=== PATIENT | female | born 1955 | race Hispanic/Latino ===

== ENCOUNTER → 2018-11-27 | Day surgery (SDC) | payer MEDICARE ==
[~2018-11-27] MED LIST: ACETAMINOPHEN/CODEINE 300MG - 30MG TAB ONE; ALLOPURINOL100 MG PO; ASPIRIN81 MG PO; ATORVASTATIN CA20 MG PO; BUPIVACAINE 0.25%/EPI 30ML SDV INJ ONE; CARVEDILOL12.5 MG PO; CEFAZOLIN SOD 1 GM VIAL ONE; CLINDAMYCIN HC150 MG PO; CLOPIDOGREL75 MG PO; FENTANYL CITRATE/PF 100MCG/2 ML INJ ONE; FUROSEMIDE40 MG PO; GABAPENTIN300 MG PO; GLIMEPIRIDE2 MG PO; HYDROGEN PEROXIDE 120 ML BTL ONE; ISOSORBIDE MONO20 MG PO; LEVOTHYROXINE100 MC1 PO; LIDOCAINE 1% W/EPINEPHRINE 20 ML VIAL ONE; LIDOCAINE HCL 1% LOCAL INJ 20 ML VIAL ONE; LIDOCAINE HCL 2% LOCAL INJ 5 ML SDV VIAL INJ ONE; MIDAZOLAM HCL 2 MG/2 ML VIAL ONE; ONDANSETRON HCL INJ 2MG/ML 2ML 2 MG/ML VIAL ONE; PROPOFOL IV EMULSION 10 MG/ML 20 ML VIAL ONE; SEVOFLURANE INHAL SOLN 250 ML PEN BTL ONE; SULFAMETHOXAZO1 EAC1 PO; TYLENOL WITH C1 EACH PO
--- OUTSIDE RECORDS SUMMARY | 2018-11-27 05:24 | XMS REPORT ---
Author Author [facility] Address Unknown Phone Unavailable Care Team Providers Care Labor Representative Name Role Phone Unavailable Unavailable Payers Payer Name Policy Type Policy Number Effective Date Expiration Date Problems This patient has no known problems. Allergies, Adverse Reactions, Alerts Allergy Name Allergy Type Status Severity Reaction(s) Onset Date Inactive Date Treating Clinician Comments No Known Allergies DA Active U 2018-05-08 00:00:00 No Known Allergies DA Active U 2016-06-20 00:00:00 Medications This patient has no known medications. Results Test Description Test Time Test Comments Text Results Atomic Results Result Comments COAGULATION TIME ACTIVATED 2018-09-07 23:04:00 COAGULATION TIME ACTIVATED (test code=ACT) 156 seconds 62.8-88.0 COAGULATION TIME [id number] 23:04:00* Test Item Value Reference Range Comments COAGULATION TIME ACTIVATED (test code=ACT) 166 seconds 62.8-88.0 COAGULATION TIME [id number] 15:39:00* Test Item Value Reference Range Comments COAGULATION TIME ACTIVATED (test code=ACT) 160 seconds 62.8-88.0 BASIC METABOLIC [id number] 07:01:00* Test Item Value Reference Range Comments SODIUM (test code=NA) 142 mmol/L 136-145 POTASSIUM (test code=K) 4.8 mmol/L 3.5-5.1 CHLORIDE (test code=CL) 107.0 mmol/L 98-107 CARBON DIOXIDE (test code=CO2) 26.0 mmol/L 21-32 ANION GAP (test code=GAP) 13.8 10-20 GLUCOSE (test code=GLU) 66 mg/dL 74-106 BLOOD UREA NITROGEN (test code=BUN) 27 mg/dL 7-18 GLOMERULAR FILTRATION RATE (test code=GFR) 33 mL/min >=60 Estimated GFR by using Modified MDRD formula.Chronic kidney disease is defined as either kidney damageor GFR <60 mL/min/1.73 m2 for >3 months. CREATININE (test code=CREAT) 1.60 mg/dL 0.55-1.02 Note change in reference range due to change in reagent. BUN/CREATININE RATIO (test code=BUN/CREA) 16.6 10-20 CALCIUM (test code=CA) 8.3 mg/dL 8.5-10.1 BASIC METABOLIC [id number] 06:52:00* Test Item Value Reference Range Comments SODIUM (test code=NA) 142 mmol/L 136-145 POTASSIUM (test code=K) 4.8 mmol/L 3.5-5.1 CHLORIDE (test code=CL) 107.0 mmol/L 98-107 CARBON DIOXIDE (test code=CO2) mmol/L 21-32 ANION GAP (test code=GAP) 10-20 GLUCOSE (test code=GLU) mg/dL 74-106 BLOOD UREA NITROGEN (test code=BUN) mg/dL 7-18 GLOMERULAR FILTRATION RATE (test code=GFR) mL/min >=60 CREATININE (test code=CREAT) mg/dL 0.55-1.02 BUN/CREATININE RATIO (test code=BUN/CREA) 10-20 CALCIUM (test code=CA) mg/dL 8.5-10.1 CBC W/AUTO [id number] 06:21:00* Test Item Value Reference Range Comments WHITE BLOOD CELL (test code=WBC) 13.2 K/mm3 4.5-12.5 RED BLOOD CELL (test code=RBC) 3.41 mill/mm3 3.7-5.2 HEMOGLOBIN (test code=HGB) 10.2 gram/dL 11.5-15.5 HEMATOCRIT (test code=HCT) 33.4 % 36.0-46.0 MEAN CELL VOLUME (test code=MCV) 97.9 fL 80-98 MEAN CELL HGB (test code=MCH) 29.9 picogram 27.0-33.0 MEAN CELL HGB CONCETRATION (test code=MCHC) 30.5 gram/dL 33.0-36.0 RED CELL DISTRIBUTION WIDTH (test code=RDW) 15.8 % 11.6-16.2 RED CELL DISTRIBUTION WIDTH SD (test code=RDW-SD) 56.4 fL 37.0-51.0 PLATELET COUNT (test code=PLT) 454 K/mm3 150-450 RESULT VERIFIED BY REPEAT ANALYSIS MEAN PLATELET VOLUME (test code=MPV) 10.8 fL 6.7-11.0 NEUTROPHIL % (test code=NT%) 67.1 % 39.0-69.0 IMMATURE GRANULOCYTE % (test code=IG%) 0.5 % 0.0-5.0 LYMPHOCYTE % (test code=LY%) 21.5 % 25.0-55.0 MONOCYTE % (test code=MO%) 6.8 % 0.0-10.0 EOSINOPHIL % (test code=EO%) 3.8 % 0.0-5.0 BASOPHIL % (test code=BA%) 0.3 % 0.0-1.0 NUCLEATED RBC % (test code=NRBC%) 0.0 % 0-0 NEUTROPHIL # (test code=NT#) 8.87 K/mm3 1.8-7.7 IMMATURE GRANULOCYTE # (test code=IG#) 0.07 x10 3/uL 0-0.03 LYMPHOCYTE # (test code=LY#) 2.84 K/mm3 1.0-5.0 MONOCYTE # (test code=MO#) 0.90 K/mm3 0-0.8 EOSINOPHIL # (test code=EO#) 0.50 K/mm3 0.0-0.5 BASOPHIL # (test code=BA#) 0.04 K/mm3 0.0-0.2 NUCLEATED RBC # (test code=NRBC#) 0.00 K/mm3 0.0-0.1 MANUAL DIFF REQUIRED (test code=MDIFF) NO [id number] 04:57:00* Test Item Value Reference Range Comments GLUBED (test code=GLUBED) 72 mg/dL 74-106 Performed by certified slice cutting machine operator helper at [facility] [id number] 23:37:00* Test Item Value Reference Range Comments GLUBED (test code=GLUBED) 153 mg/dL 74-106 Performed by certified slice cutting machine operator helper at [facility] [id number] 19:14:00* Test Item Value Reference Range Comments GLUBED (test code=GLUBED) 92 mg/dL 74-106 Performed by certified slice cutting machine operator helper at [facility] CBC W/AUTO [id number] 07:44:00* Test Item Value Reference Range Comments WHITE BLOOD CELL (test code=WBC) 13.5 K/mm3 4.5-12.5 RED BLOOD CELL (test code=RBC) 3.74 mill/mm3 3.7-5.2 HEMOGLOBIN (test code=HGB) 11.1 gram/dL 11.5-15.5 HEMATOCRIT (test code=HCT) 36.4 % 36.0-46.0 MEAN CELL VOLUME (test code=MCV) 97.3 fL 80-98 MEAN CELL HGB (test code=MCH) 29.7 picogram 27.0-33.0 MEAN CELL HGB CONCETRATION (test code=MCHC) 30.5 gram/dL 33.0-36.0 RED CELL DISTRIBUTION WIDTH (test code=RDW) 15.7 % 11.6-16.2 RED CELL DISTRIBUTION WIDTH SD (test code=RDW-SD) 56.0 fL 37.0-51.0 PLATELET COUNT (test code=PLT) 519 K/mm3 150-450 MEAN PLATELET VOLUME (test code=MPV) 10.5 fL 6.7-11.0 NEUTROPHIL % (test code=NT%) 61.3 % 39.0-69.0 IMMATURE GRANULOCYTE % (test code=IG%) 0.8 % 0.0-5.0 LYMPHOCYTE % (test code=LY%) 27.5 % 25.0-55.0 MONOCYTE % (test code=MO%) 5.3 % 0.0-10.0 EOSINOPHIL % (test code=EO%) 4.7 % 0.0-5.0 BASOPHIL % (test code=BA%) 0.4 % 0.0-1.0 NUCLEATED RBC % (test code=NRBC%) 0.0 % 0-0 NEUTROPHIL # (test code=NT#) 8.29 K/mm3 1.8-7.7 IMMATURE GRANULOCYTE # (test code=IG#) 0.11 x10 3/uL 0-0.03 LYMPHOCYTE # (test code=LY#) 3.73 K/mm3 1.0-5.0 MONOCYTE # (test code=MO#) 0.72 K/mm3 0-0.8 EOSINOPHIL # (test code=EO#) 0.63 K/mm3 0.0-0.5 BASOPHIL # (test code=BA#) 0.06 K/mm3 0.0-0.2 NUCLEATED RBC # (test code=NRBC#) 0.00 K/mm3 0.0-0.1 MANUAL DIFF REQUIRED (test code=MDIFF) NO COMPREHENSIVE METABOLIC [id number] 07:43:00* Test Item Value Reference Range Comments SODIUM (test code=NA) 142 mmol/L 136-145 POTASSIUM (test code=K) 4.2 mmol/L 3.5-5.1 CHLORIDE (test code=CL) 108.0 mmol/L 98-107 CARBON DIOXIDE (test code=CO2) 24.0 mmol/L 21-32 ANION GAP (test code=GAP) 14.2 10-20 GLUCOSE (test code=GLU) 116 mg/dL 74-106 BLOOD UREA NITROGEN (test code=BUN) 29 mg/dL 7-18 GLOMERULAR FILTRATION RATE (test code=GFR) 25 mL/min >=60 Estimated GFR by using Modified MDRD formula.Chronic kidney disease is defined as either kidney damageor GFR <60 mL/min/1.73 m2 for >3 months. CREATININE (test code=CREAT) 2.00 mg/dL 0.55-1.02 Note change in reference range due to change in reagent. BUN/CREATININE RATIO (test code=BUN/CREA) 14.8 10-20 TOTAL PROTEIN (test code=PROT) 7.1 gram/dL 6.4-8.2 ALBUMIN (test code=ALB) 3.0 g/dL 3.4-5.0 GLOBULIN (test code=GLOB) 4.1 gram/dL 2.7-4.2 ALBUMIN/GLOBULIN RATIO (test code=A/G) 0.7 0.75-1.50 CALCIUM (test code=CA) 9.0 mg/dL 8.5-10.1 BILIRUBIN TOTAL (test code=BILT) 0.30 mg/dL 0.0-1.0 SGOT/AST (test code=AST) 10 IUnit/L 15-37 SGPT/ALT (test code=ALT) 13 IUnit/L 12-78 ALKALINE PHOSPHATASE TOTAL (test code=ALKP) 168 IUnit/L 45-117 Note change in reference range due to change in reagent. COMPREHENSIVE METABOLIC [id number] 07:39:00* Test Item Value Reference Range Comments SODIUM (test code=NA) 142 mmol/L 136-145 POTASSIUM (test code=K) 4.2 mmol/L 3.5-5.1 CHLORIDE (test code=CL) 108.0 mmol/L 98-107 CARBON DIOXIDE (test code=CO2) mmol/L 21-32 ANION GAP (test code=GAP) 10-20 GLUCOSE (test code=GLU) mg/dL 74-106 BLOOD UREA NITROGEN (test code=BUN) mg/dL 7-18 GLOMERULAR FILTRATION RATE (test code=GFR) mL/min >=60 CREATININE (test code=CREAT) mg/dL 0.55-1.02 BUN/CREATININE RATIO (test code=BUN/CREA) 10-20 TOTAL PROTEIN (test code=PROT) gram/dL 6.4-8.2 ALBUMIN (test code=ALB) g/dL 3.4-5.0 GLOBULIN (test code=GLOB) gram/dL 2.7-4.2 ALBUMIN/GLOBULIN RATIO (test code=A/G) 0.75-1.50 CALCIUM (test code=CA) mg/dL 8.5-10.1 BILIRUBIN TOTAL (test code=BILT) mg/dL 0.0-1.0 SGOT/AST (test code=AST) IUnit/L 15-37 SGPT/ALT (test code=ALT) IUnit/L 12-78 ALKALINE PHOSPHATASE TOTAL (test code=ALKP) IUnit/L 45-117 [id number] 07:00:00* Test Item Value Reference Range Comments GLUBED (test code=GLUBED) 118 mg/dL 74-106 Performed by certified slice cutting machine operator helper at [facility] COAGULATION TIME [id number] 10:06:00* Test Item Value Reference Range Comments COAGULATION TIME ACTIVATED (test code=ACT) 152 seconds 62.8-88.0 [id number] 11:56:00* Test Item Value Reference Range Comments GLUBED (test code=GLUBED) 129 mg/dL 74-106 Performed by certified slice cutting machine operator helper at [facility] [id number] 06:08:00* Test Item Value Reference Range Comments GLUBED (test code=GLUBED) 162 mg/dL 74-106 Performed by certified slice cutting machine operator helper at [facility] BASIC METABOLIC [id number] 04:44:00* Test Item Value Reference Range Comments SODIUM (test code=NA) 142 mmol/L 136-145 POTASSIUM (test code=K) 3.9 mmol/L 3.5-5.1 CHLORIDE (test code=CL) 109.0 mmol/L 98-107 CARBON DIOXIDE (test code=CO2) 23.0 mmol/L 21-32 ANION GAP (test code=GAP) 13.9 10-20 GLUCOSE (test code=GLU) 130 mg/dL 74-106 BLOOD UREA NITROGEN (test code=BUN) 27 mg/dL 7-18 GLOMERULAR FILTRATION RATE (test code=GFR) 28 mL/min >=60 Estimated GFR by using Modified MDRD formula.Chronic kidney disease is defined as either kidney damageor GFR <60 mL/min/1.73 m2 for >3 months. CREATININE (test code=CREAT) 1.80 mg/dL 0.55-1.02 Note change in reference range due to change in reagent. BUN/CREATININE RATIO (test code=BUN/CREA) 14.8 10-20 CALCIUM (test code=CA) 8.4 mg/dL 8.5-10.1 CBC W/AUTO [id number] 04:28:00* Test Item Value Reference Range Comments WHITE BLOOD CELL (test code=WBC) 14.0 K/mm3 4.5-12.5 RED BLOOD CELL (test code=RBC) 3.41 mill/mm3 3.7-5.2 HEMOGLOBIN (test code=HGB) 10.4 gram/dL 11.5-15.5 HEMATOCRIT (test code=HCT) 33.7 % 36.0-46.0 MEAN CELL VOLUME (test code=MCV) 98.8 fL 80-98 MEAN CELL HGB (test code=MCH) 30.5 picogram 27.0-33.0 MEAN CELL HGB CONCETRATION (test code=MCHC) 30.9 gram/dL 33.0-36.0 RED CELL DISTRIBUTION WIDTH (test code=RDW) 15.7 % 11.6-16.2 RED CELL DISTRIBUTION WIDTH SD (test code=RDW-SD) 56.7 fL 37.0-51.0 PLATELET COUNT (test code=PLT) 360 K/mm3 150-450 MEAN PLATELET VOLUME (test code=MPV) 10.9 fL 6.7-11.0 NEUTROPHIL % (test code=NT%) 62.6 % 39.0-69.0 IMMATURE GRANULOCYTE % (test code=IG%) 0.4 % 0.0-5.0 LYMPHOCYTE % (test code=LY%) 25.8 % 25.0-55.0 MONOCYTE % (test code=MO%) 6.5 % 0.0-10.0 EOSINOPHIL % (test code=EO%) 4.4 % 0.0-5.0 BASOPHIL % (test code=BA%) 0.3 % 0.0-1.0 NUCLEATED RBC % (test code=NRBC%) 0.0 % 0-0 NEUTROPHIL # (test code=NT#) 8.77 K/mm3 1.8-7.7 IMMATURE GRANULOCYTE # (test code=IG#) 0.06 x10 3/uL 0-0.03 LYMPHOCYTE # (test code=LY#) 3.61 K/mm3 1.0-5.0 MONOCYTE # (test code=MO#) 0.91 K/mm3 0-0.8 EOSINOPHIL # (test code=EO#) 0.61 K/mm3 0.0-0.5 BASOPHIL # (test code=BA#) 0.04 K/mm3 0.0-0.2 NUCLEATED RBC # (test code=NRBC#) 0.00 K/mm3 0.0-0.1 [id number] 04:22:00* Test Item Value Reference Range Comments GLUBED (test code=GLUBED) 102 mg/dL 74-106 Performed by certified slice cutting machine operator helper at [facility] [id number] 16:54:00* Test Item Value Reference Range Comments GLUBED (test code=GLUBED) 95 mg/dL 74-106 Performed by certified slice cutting machine operator helper at [facility] [id number] 11:21:00* Test Item Value Reference Range Comments GLUBED (test code=GLUBED) 126 mg/dL 74-106 Performed by certified slice cutting machine operator helper at [facility] [id number] 07:45:00* Test Item Value Reference Range Comments GLUBED (test code=GLUBED) 110 mg/dL 74-106 Performed by certified slice cutting machine operator helper at [facility] COMPREHENSIVE METABOLIC [id number] 10:57:00* Test Item Value Reference Range Comments SODIUM (test code=NA) 142 mmol/L 136-145 POTASSIUM (test code=K) 3.6 mmol/L 3.5-5.1 CHLORIDE (test code=CL) 107.0 mmol/L 98-107 CARBON DIOXIDE (test code=CO2) 27.0 mmol/L 21-32 ANION GAP (test code=GAP) 11.6 10-20 GLUCOSE (test code=GLU) 160 mg/dL 74-106 BLOOD UREA NITROGEN (test code=BUN) 31 mg/dL 7-18 GLOMERULAR FILTRATION RATE (test code=GFR) 28 mL/min >=60 Estimated GFR by using Modified MDRD formula.Chronic kidney disease is defined as either kidney damageor GFR <60 mL/min/1.73 m2 for >3 months. CREATININE (test code=CREAT) 1.80 mg/dL 0.55-1.02 Note change in reference range due to change in reagent. BUN/CREATININE RATIO (test code=BUN/CREA) 17.4 10-20 TOTAL PROTEIN (test code=PROT) 8.0 gram/dL 6.4-8.2 ALBUMIN (test code=ALB) 3.3 g/dL 3.4-5.0 GLOBULIN (test code=GLOB) 4.7 gram/dL 2.7-4.2 ALBUMIN/GLOBULIN RATIO (test code=A/G) 0.7 0.75-1.50 CALCIUM (test code=CA) 9.1 mg/dL 8.5-10.1 BILIRUBIN TOTAL (test code=BILT) 0.40 mg/dL 0.0-1.0 SGOT/AST (test code=AST) 15 IUnit/L 15-37 SGPT/ALT (test code=ALT) 24 IUnit/L 12-78 ALKALINE PHOSPHATASE TOTAL (test code=ALKP) 181 IUnit/L 45-117 Note change in reference range due to change in reagent. LIPID PROFILE (CORONARY RISK)2018-08-21 10:57:00* Test Item Value Reference Range Comments TRIGLYCERIDES (test code=TRIG) 195 mg/dL 20-150 CHOLESTEROL (test code=CHOL) 170 mg/dL 0-200 CHOLESTEROL/HDL RATIO (test code=CHOLHDL) 4.0 RATIO 0-4.9 RISK ASSOCIATED WITH CHOL/HDL RATIOS: Risk Male Female1/2 AVERAGE 3.43 3.27AVERAGE 4.97 4.442X AVERAGE 9.55 7.053X AVERAGE 23.39 11.04 REFERENCE VALUE IS RELATED TO RISK LEVELS ASRECOMMENDED BY THE [facility]. HEART, LUNG, AND BLOOD INST. HDL CHOLESTEROL (test code=HDL) 38 mg/dL 40-60 LIPOPROTEIN LDL (test code=LDL) 121 mg/dL 100-129 RN PERSONNEL, CONTACT PHYSICIAN IMMEDIATELY IF THIS IS A STROKE, AMI OR CAROTID STENOSIS PATIENT WHEN THE LDL >100 (1ST OCCURENCE, THIS ADMISSION) Reference Interval: mg/dL mmol/L Optimal <100 <2.6Near/above optimal 100-129 2.6- 3.3Borderline High 130-159 3.4-4.1High 160-189 4.1-4.9Very High >=190 >=4.9=========This LDL result is a direct measurement.========= THYROID STIMULATING [id number] 10:57:00* Test Item Value Reference Range Comments THYROID STIMULATING HORMONE (test code=TSH) 2.210 uIU/mL 0.36-3.74 TSH REFERENCE RANGES: EUTHYROID: 0.35 - 4.3 mIU/mL HYPO : > 5.5 mIU/mL HYPER : < 0.35 mIU/mL CBC W/AUTO [id number] 10:44:00* Test Item Value Reference Range Comments WHITE BLOOD CELL (test code=WBC) 14.2 K/mm3 4.5-12.5 RED BLOOD CELL (test code=RBC) 4.02 mill/mm3 3.7-5.2 HEMOGLOBIN (test code=HGB) 12.1 gram/dL 11.5-15.5 HEMATOCRIT (test code=HCT) 38.9 % 36.0-46.0 MEAN CELL VOLUME (test code=MCV) 96.8 fL 80-98 MEAN CELL HGB (test code=MCH) 30.1 picogram 27.0-33.0 MEAN CELL HGB CONCETRATION (test code=MCHC) 31.1 gram/dL 33.0-36.0 RED CELL DISTRIBUTION WIDTH (test code=RDW) 15.8 % 11.6-16.2 RED CELL DISTRIBUTION WIDTH SD (test code=RDW-SD) 55.8 fL 37.0-51.0 PLATELET COUNT (test code=PLT) 442 K/mm3 150-450 MEAN PLATELET VOLUME (test code=MPV) 10.9 fL 6.7-11.0 NEUTROPHIL % (test code=NT%) 64.2 % 39.0-69.0 IMMATURE GRANULOCYTE % (test code=IG%) 0.5 % 0.0-5.0 LYMPHOCYTE % (test code=LY%) 24.8 % 25.0-55.0 MONOCYTE % (test code=MO%) 4.6 % 0.0-10.0 EOSINOPHIL % (test code=EO%) 5.6 % 0.0-5.0 BASOPHIL % (test code=BA%) 0.3 % 0.0-1.0 NUCLEATED RBC % (test code=NRBC%) 0.0 % 0-0 NEUTROPHIL # (test code=NT#) 9.13 K/mm3 1.8-7.7 IMMATURE GRANULOCYTE # (test code=IG#) 0.07 x10 3/uL 0-0.03 LYMPHOCYTE # (test code=LY#) 3.52 K/mm3 1.0-5.0 MONOCYTE # (test code=MO#) 0.66 K/mm3 0-0.8 EOSINOPHIL # (test code=EO#) 0.80 K/mm3 0.0-0.5 BASOPHIL # (test code=BA#) 0.04 K/mm3 0.0-0.2 NUCLEATED RBC # (test code=NRBC#) 0.00 K/mm3 0.0-0.1 MANUAL DIFF REQUIRED (test code=MDIFF) NO COMPREHENSIVE METABOLIC [id number] 10:37:00* Test Item Value Reference Range Comments SODIUM (test code=NA) 142 mmol/L 136-145 POTASSIUM (test code=K) 3.6 mmol/L 3.5-5.1 CHLORIDE (test code=CL) 107.0 mmol/L 98-107 CARBON DIOXIDE (test code=CO2) mmol/L 21-32 ANION GAP (test code=GAP) 10-20 GLUCOSE (test code=GLU) mg/dL 74-106 BLOOD UREA NITROGEN (test code=BUN) mg/dL 7-18 GLOMERULAR FILTRATION RATE (test code=GFR) mL/min >=60 CREATININE (test code=CREAT) mg/dL 0.55-1.02 BUN/CREATININE RATIO (test code=BUN/CREA) 10-20 TOTAL PROTEIN (test code=PROT) gram/dL 6.4-8.2 ALBUMIN (test code=ALB) g/dL 3.4-5.0 GLOBULIN (test code=GLOB) gram/dL 2.7-4.2 ALBUMIN/GLOBULIN RATIO (test code=A/G) 0.75-1.50 CALCIUM (test code=CA) mg/dL 8.5-10.1 BILIRUBIN TOTAL (test code=BILT) mg/dL 0.0-1.0 SGOT/AST (test code=AST) IUnit/L 15-37 SGPT/ALT (test code=ALT) IUnit/L 12-78 ALKALINE PHOSPHATASE TOTAL (test code=ALKP) IUnit/L 45-117 LIPID PROFILE (CORONARY RISK)2018-08-21 10:37:00* Test Item Value Reference Range Comments TRIGLYCERIDES (test code=TRIG) mg/dL 20-150 CHOLESTEROL (test code=CHOL) mg/dL 0-200 CHOLESTEROL/HDL RATIO (test code=CHOLHDL) RATIO 0-4.9 HDL CHOLESTEROL (test code=HDL) mg/dL 40-60 LIPOPROTEIN LDL (test code=LDL) mg/dL 100-129 THYROID STIMULATING [id number] 10:37:00* Test Item Value Reference Range Comments THYROID STIMULATING HORMONE (test code=TSH) uIU/mL 0.36-3.74 - XR CHEST 2 [id number] 10:08:00 FAX: Maria Del Carmen Skinner MD [phone] [place]: O St: PRE FAX: Y Elma Cary [phone] Name: HAYDEN MAYA [facility] : 1955 Age/S: 62/F [address] Unit #: [id number] Loc: [place] [address] Phys: Elma Cary MD Acct: [id number] Dis Date: Status: PRE SDC PHONE #: [phone] Exam Date: 08/21/2018954 FAX #: [phone] Reason: PRE OP EXAMS: CPT CODE: [id number] XR CHEST 2 V 21720 HISTORY: Preop. COMPARISON: May 13, 2018. Left ICD is unchanged. No acute infiltrates, effusion or congestion. Dependent changes. 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 IMPRESSION: No acute infiltrates, effusion or congestion. at 1008 Reported and signed by: Mono Almeida M.D. CC: Maria Del Carmen Jeong MD; Elam Cary MD Technologist: Suzette Zarco; STUDENT TECHNOLOGIST Trnscrd Date/Time/By: 08/21/2018 (1008) : By: [email or web address] Orig Print D/T: S: 08/21/2018 (1012) PAGE 1 Signed Report
--- NOTE | 2018-11-27 08:28 | Operative Report ---
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 PROCEDURE PERFORMED: Incision and drainage of infected cyst of the left shoulder and debridement. ANESTHESIA: General. ESTIMATED BLOOD LOSS: Minimal. DRAINS: None. COMPLICATION: None. INDICATION: A 62-year-old female with multitude of medical problems, admitted for I and D of an infected epidermal inclusion cyst of longstanding. DESCRIPTION OF PROCEDURE: With the patient lying on the operative table in supine position and after initiation of general anesthesia, she was placed in the right lateral decubitus position with the left shoulder up. The central part of the cyst, which was about 3-1/2 cm area was excised and this area was draining pus through multiple channels. The cavity was entered, loculations broken down as much as the lining was removed and culture and sensitivities were taken. The wound was irrigated. Bleeding points were cauterized. Then, the wound was packed with Betadine gauze. Sterile dressing was applied. The patient tolerated the procedure well and taken to recovery room in stable condition. Jonn Mcdonald MD PJR/MODL /[id number]
[2018-11-27 09:25] VITALS: BP 115/61
== END | disposition home or self-care (01) ==
LOC: OR 05:22
PROVIDERS: ATTEND Surgery
DX: L02.414 Cutaneous abscess of left upper limb (principal); Z01.810 Encounter for preprocedural cardiovascular examination; Z01.812 Encounter for preprocedural laboratory examination; I25.10 Atherosclerotic heart disease of native coronary artery without angina pectoris; Z95.0 Presence of cardiac pacemaker; E11.22 Type 2 diabetes mellitus with diabetic chronic kidney disease; I12.9 Hypertensive chronic kidney disease with stage 1 through stage 4 chronic kidney disease, or unspecified chronic kidney disease; N18.9 Chronic kidney disease, unspecified; E07.9 Disorder of thyroid, unspecified; I25.2 Old myocardial infarction; Z86.718 Personal history of other venous thrombosis and embolism; Z90.49 Acquired absence of other specified parts of digestive tract; Z87.891 Personal history of nicotine dependence; Z80.3 Family history of malignant neoplasm of breast; Z83.3 Family history of diabetes mellitus; Z82.49 Family history of ischemic heart disease and other diseases of the circulatory system; Z79.84 Long term (current) use of oral hypoglycemic drugs; E78.00 Pure hypercholesterolemia, unspecified; L72.0 Epidermal cyst
CPT/HCPCS: 10060; 36415; 82948; 87071; 87075; 87205; 88304; 93005; J0690; J2001; J2250; J2405; J2704

== ENCOUNTER 2019-11-30 11:17 | Inpatient (IN) | payer MEDICARE, BC, OTHER ==
[~2019-11-30] VITALS: Ht 152.4 cm; Wt 92.1 kg
[~2019-11-30 11:17] MED LIST changes: -ACETAMINOPHEN/CODEINE 300MG - 30MG TAB ONE; -BUPIVACAINE 0.25%/EPI 30ML SDV INJ ONE; -CEFAZOLIN SOD 1 GM VIAL ONE; -FENTANYL CITRATE/PF 100MCG/2 ML INJ ONE; -HYDROGEN PEROXIDE 120 ML BTL ONE; -LIDOCAINE 1% W/EPINEPHRINE 20 ML VIAL ONE; -LIDOCAINE HCL 1% LOCAL INJ 20 ML VIAL ONE; -LIDOCAINE HCL 2% LOCAL INJ 5 ML SDV VIAL INJ ONE; -MIDAZOLAM HCL 2 MG/2 ML VIAL ONE; -ONDANSETRON HCL INJ 2MG/ML 2ML 2 MG/ML VIAL ONE; -PROPOFOL IV EMULSION 10 MG/ML 20 ML VIAL ONE; -SEVOFLURANE INHAL SOLN 250 ML PEN BTL ONE
--- OUTSIDE RECORDS SUMMARY | 2019-11-30 11:21 | XMS REPORT | Clinical Summary ---
Author Author [facility] Distr ict Organization [facility] Address Unknown Phone Unavailable Care Team Providers Care Aviation Support Equipment Repairer Name Role Phone PCP Unavailable Allergies No Known Allergies Medications End Date Status Medication Sig Dispensed Refills Start Date Active ASPIRIN 81 mg Tab Take 1 tablet 0 by mouth daily . Active atorvastatin (LIPITOR) 80 Take 80 mg by 0 mg tablet mouth at bedtime nightly. Active furosemide (LASIX) 40 mg Take 40 mg by 0 tablet mouth 2 times daily. Active clopidogrel (PLAVIX) 75 Take 75 mg by 0 mg tablet mouth daily. Active carvedilol (COREG) 6.25 Take 6.25 mg 0 mg tablet by mouth 2 times daily (with meals). Active gabapentin (NEURONTIN) Take 300 mg 0 300 mg capsule by mouth 3 times daily. Active levothyroxine (SYNTHROID) Take 200 mcg 0 200 mcg tablet by mouth daily. Active allopurinol (ZYLOPRIM) Take 100 mg 0 100 mg tablet by mouth daily. Active isosorbide dinitrate Take 10 mg by 0 (ISORDIL) 10 mg tablet mouth 3 times daily. Active glimepiride (AMARYL) 4 mg Take 4 mg by 0 tablet mouth every morning (before breakfast). Active clindamycin (CLEOCIN-T) 1 Apply to 60 mL 0 % external affected area 7 solutionIndications: Boil 2 times daily. 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 Appendix not removed at time of surgery since benign frozen sec tion result. 02/21/2015: Tumor board - mucinous border line tumor, intestinal type of the left ovary. No surface involvement. R ight ovary with mature teratoma. Uterine leiomyoma. Plan for observatio n Post-op pain 02/09/2015 ASCUS with positive high risk HPV 08/25/2014 BMI 39.0-39.9,adult 08/25/2014 Hyperopia with astigmatism and presbyopia 04/27/2014 Diabetes mellitus type 2 without retinopathy 014 NS (nuclear sclerosis) 04/27/2014 Pre-operative examination for internal medicine 01/19 Chest wall abscess, DM, HTN, CAD s/p PCI in LAD x2 4 weeks ago at [facility] (on 12/31/2013 Plavix/ASA, EF 45% on 11/30/13), tobacco abuse (40 pack years, quit 4 weeks ago), PVD, posted/consented for I&D S/P coronary artery stent placement 11/29/2013 Preop exam for internal medicine 11/10/2013 Left ankle pain 05/27/2013 Obesity 12/28/2012 DM (diabetes mellitus) 09/02/2011 PAD (peripheral artery disease) 08/30/2011 CAD (coronary artery disease) 05/13/2011 Dyslipidemia 05/13/2011 HTN (hypertension) 05/13/2011 Unspecified hypothyroidism 05/13/2011 Cigarette smoker 05/13/2011 Overview: Pt has now quit Immunizations Name Administration Dates Next Due Influenza Vaccine 06/28/2015, 06/02/2013 PPV 23 Pneumococcal 11/29/2013 Polysaccaride Tdap Tetanus, diphtheria, 11/26/2012 acellular pertussis Vaccine Family History Medical History Relation Name Comments Cancer Father colon cancer Cancer Mother Breast Cancer Relation Name Status Comments Father Mother Social History Date Tobacco Use Types Packs/Day Years Used Current Every Day Smoker Cigarettes 0.5 20 Smokeless Tobacco: Never Used Tobacco Cessation: Counseling Given: No Drinks/Week oz/Week Comments Alcohol Use 0 Standard drinks or equivalent 0.0 No Food Insecurity Answer Date Recorded Within the past 12 months, you worried that your Never ravi e 02/06/2017 food would run out before you got money to buy more. Within the past 12 months, the food you bought Never true 02/06/2017 just didn't last and you didn't have mo ramesh to get more. Sex Assigned at Date Recorded Not on file Industry Job Start Date Occupation Not on file Not on file Not on file Travel End Travel History Travel Start No recent travel history available. Last Filed Vital Signs Not on file Plan of Treatment Health Maintenance Due Date Last Done Comments Colorectal Cancer Scrn 09/01/2016 09/01/2015, (Declined), Annual (FIT/FOBT) Age 49 10/04/2011 to 74 Cervical Cancer Scrn (3 08/13/2017 08/13/2014, Yrs) CORONARY ARTERY DISEASE 02/06/2018 02/06/2017, , 08/26/2014, AGE 18 AND UP Additional history exists DM HGBA1C (Yearly) 02/06/2018 02/06/2017, 016, 11/24/2015, Additional history exists DM Retinal Exam (Yearly) 02/08/2018 02/08/2017, 0 09/27/2015, 04/27/2014, Additional history exists Breast Cancer Scrn 02/13/2018 02/13/2017, 016, 11/04/2014, (Yearly) Additional history exists DM Foot Exam (Yearly) 04/07/2018 04/07/2017, 07/2014, 02/17/2014, Additional history exists DM Microalbumin Urine 04/07/2018 04/07/2017, 03/21, 04/07/2017, Scrn (Yearly) Additional history exists Implants Device Identifier Shelf Expiration Date Model / Serial / L ot Implanted Type Area Manufactur er 01/17/2015 [id number] / / [id number] Mynxgrip Vascular Closure Device ARTERIAL Right: Groin( s) ACCESS Implanted: Qty: 1 on 03/28/2014 by GRAFT NIDIA SURE Abhay Zafar MD at [facility] 06/20/2015 [id number] / / [id number] Zilver Flex 35 Biliary Self Stent Right: Groin(s) C ook Inc Expanding Stent Implanted: Qty: 1 on 03/28/2014 by Abhay Zafar MD at [facility] 05/21/2015 [id number] / / [id number] Zilver Flex 35 Biliary Self Stent Right: Groin(s) [employer] ook [employer] Expanding Stent Implanted: Qty: 1 on 03/28/2014 by Abhay Zafar MD at [facility] 09/24/2016 [id number] / / [id number] Zilver 635 Vascular Stent Stent Right: Groin(s) Dive Supervisor [employer] Implanted: Qty: 1 on 03/28/2014 by Abhay Zafar MD at [facility] 10/19/2014 [id number] / / [id number] Zilver 635 Vascular Stent Stent Right: Groin(s) Dive Supervisor [employer] Implanted: Qty: 1 on 03/28/2014 by Abhay Zafar MD at [facility] Results Not on fileafter 11/29/2018 Insurance Type Payer Benefit Subscriber ID Effective Phone Address Plan / Dates Group MEDICARE MEDICARE xxxxxxxxxx 2015-P [phone] [address] resent [id number] [place] [id number] Advance Directives Date Inactivated Comments Code Status Date Activated 02/12/2015 6:59 PM Full Code 02/09/2015 3:28 PM 01/01/2014 6:17 PM Full Code 12/31/2013 7:17 PM 11/30/2013 5:46 PM Full Code 11/29/2013 9:50 AM
[2019-11-30] MEDS ORDERED: SODIUM CHLORIDE 0.9% 1000ML 2,000 ML IV STA (11:56)
[2019-11-30 12:05] LABS: BASOPHILS # (AUTO) 0.1 (0.0-0.1); BASOPHILS % 0.4 % (0.0-1.0); EOSINOPHILS # (AUTO) 0.3 (0.0-0.4); EOSINOPHILS % 1.6 % (0.0-6.0); HEMATOCRIT 34.5 % (34.2-44.1); LYMPHOCYTES # (AUTO) 4.3 (1.0-3.2); LYMPHOCYTES % 26.8 % (18.0-39.1); MEAN CORPUSCULAR HEMOGLOBIN 30.8 pg (28-32); MEAN CORPUSCULAR HGB CONC 34.8 g/dL (31-35); MEAN CORPUSCULAR VOLUME 88.5 fL (81-99); MONOCYTES # (AUTO) 0.8 (0.2-0.8); MONOCYTES % 4.9 % (4.4-11.3); NEUTROPHILS # (AUTO) 10.3 (2.1-6.9); PLATELET COUNT 363 x10e3/uL (140-360); RED CELL DISTRIBUTION WIDTH 13.6 % (11.7-14.4)
[2019-11-30 12:11] LABS: CLARITY,URINE CLEAR (CLEAR); COLOR,URINE YELLOW (YELLOW); LEUKOCYTE ESTERASE ,URINE NEGATIVE (NEGATIVE); NITRITE,URINE NEGATIVE (NEGATIVE); PROTEIN,URINE DIPSTICK 1+ (NEGATIVE)
[2019-11-30 12:12] LABS: KETONES,URINE NEGATIVE (NEGATIVE)
[2019-11-30 12:13] LABS: BILIRUBIN,URINE NEGATIVE (NEGATIVE); URINE UROBILINOGEN 0.2 mg/dL (0.2 - 1)
[2019-11-30 12:19] LABS: BACTERIA,URINE RARE /HPF; EPITHELIAL CELLS,URINE FEW /LPF
[2019-11-30 12:22] LABS: ALBUMIN 3.3 g/dL (3.5-5.0); ALBUMIN/GLOBULIN RATIO 0.7 (0.8-2.0); ANION GAP 19.6 mmol/L (8-16); CALCIUM 9.2 mg/dL (8.4-10.2); CREATININE, SERUM 3.2 mg/dL (0.57-1.11)
[2019-11-30 12:29] LABS: CREATINE KINASE MB 1.9 ng/mL (0-5.0)
[2019-11-30 12:39] LABS: POTASSIUM 2.6 mmol/L (3.5-5.1)
[2019-11-30] MEDS ORDERED: POTASSIUM CHLORIDE 20 MEQ TAB CR PO STA ×2 (12:57→13:35)
[2019-11-30] MEDS ORDERED: POTASSIUM CHLORIDE 20MEQ/100ML 1,000 ML IV ONE (13:00)
[2019-11-30] MEDS ORDERED: INSULIN REGULAR, HUMAN 3ML VL 100 UNIT in SODIUM CHLORIDE 0.9% 100 ML 99 ML IV STA ×2 (13:06)
[2019-11-30] MEDS ORDERED: POTASSIUM CHLORIDE 20 MEQ TAB CR PO ONE ×2 (13:12→16:00)
[2019-11-30] MEDS ORDERED: POTASSIUM CHLORIDE 20MEQ/100ML 100 ML IV ONE (13:15)
[2019-11-30] MEDS ORDERED: POTASSIUM CHLORIDE 20MEQ/100ML 100 ML ONE ×2 (13:17→22:13)
[2019-11-30] MEDS ORDERED: DEXTROSE 5%/0.45% SOD CHL 1,000 ML IV SCH (14:00)
[2019-11-30] MEDS ORDERED: INSULIN REGULAR, HUMAN 3ML VL 100 UNIT in SODIUM CHLORIDE 0.9% 99 ML IV SCH ×2 (14:00)
[2019-11-30] MEDS ORDERED: POTASSIUM CHLORIDE 20MEQ/100ML 200 ML IV PRN (14:00)
[2019-11-30] MEDS ORDERED: MAGNESIUM SULF 1GRAM/DEXTROSE 100 ML IV PRN (14:00)
[2019-11-30] MEDS ORDERED: POTASSIUM CHLORIDE 10MEQ EA PO ONE (14:00)
[2019-11-30] MEDS: SODIUM CHLORIDE 0.9% 1000ML 1,000 ML IV SCH ×2 (15:03→18:33)
[2019-11-30 15:30] LABS: ANION GAP 16.2 mmol/L (8-16); CALCIUM 8.5 mg/dL (8.4-10.2); CREATININE, SERUM 2.52 mg/dL (0.57-1.11); POTASSIUM 3.2 mmol/L (3.5-5.1)
--- NOTE | 2019-11-30 15:52 | Emergency Department Note ---
History of Present Illnes History of Present Illness Chief Complaint: Diabetic Crisis Stated Complaint: HIGH SUGAR Chief Complaint Comment went to see pcp today and sent here for further eval due to bs on glucometer reading high pt denies being on insulin states she takes metformin states she's been feeling like this x 4 days states she does check her bs regularly pt a&o x 3 during triage appears weak during triage pt bs checked during triage glucometer reads high History of Present Illness This is a 63 year old female sent from PCP's office for high blood sugar. Historian: Patient, Family Member Onset (how long ago): day(s) Severity: mild Onset quality: gradual Progression: unchanged Chronicity: recurrent Past Medical/Family History Physician Review I have reviewed the patient's past medical and family history. Any updates have been documented here. Past Medical History Recent Fever: No Clinical Suspicion of Infectio: No New/Unexplained Change in Ment: No Past Medical History: Hypertension, Diabetes, CHF, Hypothyroidism, Hyperlipedemia Past Surgical History: Cholecysctectomy, Appendectomy, Hysterectomy Other Surgery: stents pacemaker uterine tumors removed Social History Smoking Cessation: Never Smoker Counseling Performed: No Alcohol Use: None Any Illegal Drug Use: No TB Exposure/Symptoms: No Physically hurt or threatened: No Family History Family history of heart diseas: Yes Other Last Tetanus: utd Any Pre-Existing Lines (PICC,: No Is patient up to date on immun: Yes Last Flu: utd Last Pneumovax: utd Review of Systems Review of Systems EENTM: no symptoms, as per HPI, eye pain, blurred vision, tearing, double vision, ear pain, ear discharge, nose pain, nose congestion, throat pain, throat swelling, mouth pain, mouth swelling, other Cardiovascular: no symptoms; chest pain Respiratory: no symptoms, as per HPI, change in phlegm color, chest congestion, cough, hemoptysis, excessive phlegm production, pain on inspiration, pain with cough, dyspnea, dyspnea on exertion, snoring, stridor, wheezing, other Gastrointestinal: no symptoms, as per HPI, abdominal pain, constipation, diarrhea, nausea, vomiting, other Musculoskeletal: back pain Neurological: weakness; numbness Psychological: anxiety Endocrine: as per HPI, increased urination Review of other systems All other systems reviewed and negative. Physical Exam Related Data Allergies: Coded Allergies: No Known Allergies (Unverified , 11/27/18) Triage Vital Signs Vital Signs Date Time Temp Pulse Resp B/P (MAP) Pulse Ox O2 Delivery O2 Flow Rate FiO2 11/30/19 11:29 97.4 72 16 106/70 99 Physical Exam CONSTITUTIONAL Constitutional: well-developed, well-nourished HENT HENT: normocephalic, atraumatic, oropharynx clear/moist, nose normal HENT - Ear: left ext ear normal, right ext ear normal EYES Eyes: PERRL, conjunctivae normal NECK Neck: ROM normal PULMONARY Pulmonary: effort normal, breath sounds normal CARDIOVASCULAR Cardiovascular: regular rhythm, heart sounds normal, capillary refill normal, normal rate GASTROINTESTINAL Abdominal: soft, nontender, bowel sounds normal GENITOURINARY Genitourinary: exam deferred SKIN Skin: warm, dry MUSCULOSKELETAL Musculoskeletal: ROM normal NEUROLOGICAL Neurological: alert, oriented x 3, no gross motor or sensory deficits PSYCHOLOGICAL Psychiatric/behavioral: mood/affect normal, judgement normal Results Laboratory Result Diagram: 11/30/19 1145 11/30/19 1145 Laboratory Laboratory Tests Test 11/30/19 12:30 11/30/19 11:45 Venous Blood Partial Pressure O2 (40-41) White Blood Count 15.83 x10e3/uL (4.8-10.8) Red Blood Count 3.90 x10e6/uL (3.6-5.1) Hemoglobin 12.0 g/dL (12.0-16.0) Hematocrit 34.5 % (34.2-44.1) Mean Corpuscular Volume 88.5 fL (81-99) Mean Corpuscular Hemoglobin 30.8 pg (28-32) Mean Corpuscular Hemoglobin Concent 34.8 g/dL (31-35) Red Cell Distribution Width 13.6 % (11.7-14.4) Platelet Count 363 x10e3/uL (140-360) Neutrophils (%) (Auto) 65.0 % (38.7-80.0) Lymphocytes (%) (Auto) 26.8 % (18.0-39.1) Monocytes (%) (Auto) 4.9 % (4.4-11.3) Eosinophils (%) (Auto) 1.6 % (0.0-6.0) Basophils (%) (Auto) 0.4 % (0.0-1.0) Neutrophils # (Auto) 10.3 (2.1-6.9) Lymphocytes # (Auto) 4.3 (1.0-3.2) Monocytes # (Auto) 0.8 (0.2-0.8) Eosinophils # (Auto) 0.3 (0.0-0.4) Basophils # (Auto) 0.1 (0.0-0.1) Absolute Immature Granulocyte (auto 0.20 x10e3/uL (0-0.1) Urine Color Yellow (YELLOW) Urine Clarity Clear (CLEAR) Urine pH 5.5 (5 - 7) Urine Specific [place] 1.015 (1.010-1.025) Urine Protein 1+ (NEGATIVE) Urine Glucose (UA) 2+ (NEGATIVE) Urine Ketones Negative (NEGATIVE) Urine Blood 1+ (NEGATIVE) Urine Nitrite Negative (NEGATIVE) Urine Bilirubin Negative (NEGATIVE) Urine Urobilinogen 0.2 mg/dL (0.2 - 1) Urine Leukocyte Esterase Negative (NEGATIVE) Urine RBC 6-10 /HPF (0-5) Urine WBC 11-20 /HPF (0-5) Urine Epithelial Cells Few /LPF (NONE) Urine Bacteria Rare /HPF (NONE) Sodium Level 122 mmol/L (136-145) Potassium Level 2.6 mmol/L (3.5-5.1) Chloride Level 81 mmol/L (98-107) Carbon Dioxide Level 24 mmol/L (22-29) Anion Gap 19.6 mmol/L (8-16) Blood Urea Nitrogen 59 mg/dL (7-26) Creatinine 3.20 mg/dL (0.57-1.11) Estimat Glomerular Filtration Rate 15 ML/MIN (60-) BUN/Creatinine Ratio 18 (6-25) Glucose Level 732 mg/dL (74-118) Calcium Level 9.2 mg/dL (8.4-10.2) Total Bilirubin 0.4 mg/dL (0.2-1.2) Aspartate Amino Transf (AST/SGOT) 25 IU/L (5-34) Alanine Aminotransferase (ALT/SGPT) 29 IU/L (0-55) Alkaline Phosphatase 179 IU/L (40-150) Creatine Kinase 69 IU/L (29-168) Creatine Kinase MB 1.90 ng/mL (0-5.0) Troponin I 0.035 ng/mL (0-0.300) Total Protein 7.9 g/dL (6.5-8.1) Albumin 3.3 g/dL (3.5-5.0) Globulin 4.6 g/dL (2.3-3.5) Albumin/Globulin Ratio 0.7 (0.8-2.0) Lab results reviewed: Yes (hypokalemia ) Laboratory comments Pt with AGMA acidosis noted 2/2 hyperglycemia Hypokalemia with K 2.6 WBC 15.8 may be reactive 2/2 hyperglycemia Imaging Y: Yes Critical Care Time Total Critical Care Time (min): 65 Time ED Physician saw patient: 11:45 Critical care time exclusive o: separately billable procedures Critcal care necessary due to: endocrine crisis Critcal care time spent by me: blood dram for specimens Subsequent provider I assumed direction of critical care for this patient from another provider of my specialty. Comments Pt with AGMA 2/2 elevated CBG with marked hypokalemia Pt's K was replaced prior to insulin drip initiation BMP drawn by me to ensure closure of AG Assessment & Plan Assessment & Plan Problems: (1) Hyperglycemic hyperosmolar nonketotic coma Assessment & Plan DKA - AGMA -insulin drip initiated 0.1 mg/kg --> 8 units/hr, to be continued until AG <12 -D5 1/2 NS to be initiated once CBG <250 Hypokalemia -Potassium 20 meq IV and 40 meq PO replaced Pt required hospital admission to ICU Depart Disposition: ADMITTED Last Vital Signs Date Time Temp Pulse Resp B/P (MAP) Pulse Ox O2 Delivery O2 Flow Rate FiO2 11/30/19 12:01 71 12 135/76 100 11/30/19 11:29 97.4 Home Meds Reported Medications Furosemide (FUROSEMIDE) 40 Mg Tablet, 40 MG PO TID, #30 TAB 11/27/18 Gabapentin (GABAPENTIN) 300 Mg Capsule, 300 MG PO TID, #60 CAP 11/27/18 Isosorbide Mononitrate (ISOSORBIDE MONONITRATE) 20 Mg Tablet, 10 MG PO TID, #30 TAB 11/27/18 Aspirin (ASPIRIN) 81 Mg Tab.chew, 81 MG PO DAILY 11/27/18 Levothyroxine Sodium (LEVOTHYROXINE SODIUM) 100 Mcg Vial, 100 MCG PO DAILY, VIAL 11/27/18 Allopurinol (ALLOPURINOL) 100 Mg Tablet, 100 MG PO DAILY, #30 TAB 11/27/18 Clopidogrel Bisulfate (CLOPIDOGREL) 75 Mg Tablet, 75 MG PO DAILY, #30 TAB 11/27/18 Carvedilol (CARVEDILOL) 12.5 Mg Tablet, 12.5 MG PO BID, #60 TAB 11/27/18 Sulfamethoxazole/Trimethoprim (SULFAMETHOXAZOLE-TMP DS TABLET) 1 Each Tablet, 1 TAB PO BID 11/27/18 Clindamycin Hcl (CLINDAMYCIN HCL) 150 Mg Capsule, 300 MG PO TID 11/27/18 Acetaminophen With Codeine (TYLENOL WITH CODEINE #3 TABLET) 1 Each Tablet, 300 MG PO Q6H, TAB 11/27/18 Atorvastatin Calcium (ATORVASTATIN CALCIUM) 20 Mg Tablet, 80 MG PO HS, #30 TAB 11/27/18 Glimepiride (GLIMEPIRIDE) 2 Mg Tablet, 4 MG PO DAILY, TAB 11/27/18 Medications in the ED Sodium Chloride 2,000 ml @ 0 mls/hr Q0M STAT IV Last administered on 11/30/19at 12:00; Admin Dose 999 MLS/HR; Start 11/30/19 at 11:56; Stop 11/30/19 at 11:59; Status DC Potassium Chloride 1,000 ml @ 50 mls/hr ONCE ONCE IV ; Start 11/30/19 at 13:00; Stop 12/01/19 at 08:59; Status UNV Potassium Chloride 40 meq NOW STAT PO ; Start 11/30/19 at 12:57; Stop 11/30/19 at 12:58; Status UNV Insulin Human Regular 100 unit/ Sodium Chloride 100 ml @ 0 mls/hr TITRATE STAT IV ; Start 11/30/19 at 12:57; Stop 11/30/19 at 12:58; Status UNV GREG MCRAE DO November 30, 2019 13:04
--- OUTSIDE RECORDS SUMMARY | 2019-11-30 17:39 | XMS REPORT | Clinical Summary ---
Author Author [facility] Distr ict Organization [facility] Address Unknown Phone Unavailable Care Team Providers Care Lime Puller Name Role Phone PCP Unavailable Allergies No [...] ot Implanted Type Area Manufactur er 01/17/2015 [id number] / / [id number] Mynxgrip Vascular Closure Device ARTERIAL Right: Groin( s) ACCESS Implanted: Qty: 1 on 03/28/2014 by GRAFT NIDIA SURE Abhay Zafar MD at [facility] 06/20/2015 [id number] / / [id number] Zilver Flex 35 Biliary Self Stent Right: Groin(s) C ook Inc Expanding Stent Implanted: Qty: 1 on 03/28/2014 by Abhay Zafar MD at [facility] 05/21/2015 [id number] / / [id number] Zilver Flex 35 Biliary Self Stent Right: Groin(s) C ook [employer] Expanding Stent Implanted: Qty: 1 on 03/28/2014 by Abhay Zafar MD at [facility] 09/24/2016 [id number] / / [id number] Zilver 635 Vascular Stent Stent Right: Groin(s) Coding [employer] Implanted: Qty: 1 on 03/28/2014 by Abhay Zafar MD at [facility] 10/19/2014 [id number] / / [id number] Zilver 635 Vascular Stent Stent Right: Groin(s) Coding Specialist [employer] Implanted: Qty: 1 on 03/28/2014 by Abhay Zafar MD at [facility] Results Not on fileafter 11/29/2018 Insurance Type Payer Benefit Subscriber ID Effective Phone Address Plan / Dates Group MEDICARE MEDICARE xxxxxxxxxx 2015-P [phone] [address] B resent [id number] [place] [id number] Advance Directives Date Inactivated Comments Code Status Date Activated 02/12/2015 6:59 PM Full Code 02/09/2015 3:28 PM 01/01/2014 6:17 PM Full Code 12/31/2013 7:17 PM 11/30/2013 5:46 PM Full Code 11/29/2013 9:50 AM
[2019-11-30 17:48] LABS: ANION GAP 15.1 mmol/L (8-16); CALCIUM 8.1 mg/dL (8.4-10.2); CREATININE, SERUM 2.26 mg/dL (0.57-1.11); POTASSIUM 3.1 mmol/L (3.5-5.1)
[2019-11-30 20:06] VITALS: BP 109/56
[2019-11-30 20:30] VITALS: BP 109/56
[2019-11-30 21:00] VITALS: BP 106/55
[2019-11-30 21:17] LABS: ANION GAP 15.2 mmol/L (8-16); CALCIUM 8.2 mg/dL (8.4-10.2); POTASSIUM 3.2 mmol/L (3.5-5.1)
[2019-11-30 22:00] VITALS: BP 94/66
[2019-11-30] MEDS: CEFEPIME 1GM/NS 0.9% 50 ML 50 ML IV SCH (22:08)
[2019-11-30 23:00] VITALS: BP 105/35
[2019-12-01] VITALS (25 sets, daily range): BP systolic 82–128; BP diastolic 41–81
[2019-12-01] MEDS: INSULIN REGULAR, HUMAN 3ML VL 100 UNIT in SODIUM CHLORIDE 0.9% 100 ML 99 ML IV SCH ×2 (05:00)
[2019-12-01 06:12] LABS: CALCIUM 7.5 mg/dL (8.4-10.2); CREATININE, SERUM 1.97 mg/dL (0.57-1.11)
[2019-12-01] MEDS: DEXTROSE 5%/0.45% SOD CHL 1,000 ML IV SCH ×3 (08:19→23:56)
--- NOTE | 2019-12-01 09:22 | Diagnostic Imaging Report ---
Examination: Single AP view of the chest. COMPARISON: None. INDICATION: Hyperglycemia DISCUSSION: Lines/tubes: Single-lead ICD. Lungs: The lungs are well inflated and clear. No pneumonia or pulmonary edema. Pleura: No pleural effusion or pneumothorax. Heart and mediastinum: The heart and the mediastinum are unremarkable. Bones and soft tissues: No acute bony abnormalities. IMPRESSION: 1. No acute cardiopulmonary abnormalities. Signed by: Dr. Ky Lawrence M.D. on 12/01/2019 9:19 AM
[2019-12-01] MEDS: CEFEPIME 1GM/NS 0.9% 50 ML 50 ML IV SCH ×2 (09:52→22:00)
[2019-12-01 14:34] LABS: CHOL/HDL RATIO 3.9 (3.0-3.6)
[2019-12-01 14:51] LABS: FREE T4 (FREE THYROXINE) 0.9 ng/dL (0.8-1.8); THYROID STIMULATING HORMONE 2.313 uIU/mL (0.350-4.940)
[2019-12-01] MEDS: ISOSORBIDE MONONITRATE 20 MG TAB PO SCH ×2 (15:49→22:00)
[2019-12-01] MEDS: GABAPENTIN 300 MG CAP PO SCH ×2 (15:49→22:00)
[2019-12-01] MEDS: FUROSEMIDE 40 MG TAB PO SCH ×2 (15:49→22:00)
[2019-12-01] MEDS: CARVEDILOL 12.5 MG TAB PO SCH (16:05)
[2019-12-01] MEDS ORDERED: INSULIN GLARGINE 100 UNITS/ML VIAL SQ SCH (21:00)
--- NOTE | 2019-12-01 21:30 | Consultation ---
DATE OF CONSULTATION: Endocrine Consultation This is a patient of Dr. Maria Del Carmen Jeong. HISTORY OF PRESENT ILLNESS: Thank you very much for referring this patient. This is a 63-year-old lady, who was referred to me for evaluation of uncontrolled diabetes mellitus. The patient reported she is a known diabetic for last several years. She had prediabetes and onset, and then has been on metformin. She came to the hospital with history of nausea, vomiting. On further evaluation, her blood sugar was found to be 732. Anion gap was 19.2. The patient is presently on insulin drip. Her hemoglobin A1c 17.8. PAST MEDICAL HISTORY: Other medical problems including history of hyperlipidemia, hypertension, coronary artery disease, and hypothyroidism. MEDICATIONS: The patient is on several other medications at home includin. Plavix 75 mg once daily. 2. Synthroid 0.1 mg once daily. 3. Lipitor 80 mg once daily. PHYSICAL EXAMINATION: GENERAL: Today, the patient is alert, awake, little bit apprehensive. VITAL SIGNS: Heart rate is around 70, blood pressure 140/80 mmHg. HEENT: Essentially unremarkable. Thyroid is palpable. Clinically, she is near euthyroid. CHEST: Bilateral vesicular breathing. No rales. CARDIOVASCULAR: First and second heart sound. There is no third or fourth heart sound. Ejection systolic murmur grade 2/6. 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 CLINICAL IMPRESSION: 1. Diabetes mellitus type 2. 2. Diabetic ketoacidosis. 3. Coronary artery disease. 4. Hypothyroidism. 5. Hyperlipidemia. PLAN: At this time, the patient has been started on insulin drip, IV fluids, monitor blood sugars closely. She also has an acute on chronic renal failure. Thank you for referring this patient. I will be following this patient with you. MD DREW Avila/ISIL /[id number]
[2019-12-01] MEDS: ATORVASTATIN 40 MG TAB PO SCH (22:00)
[2019-12-01] MEDS ORDERED: CEFOXITIN 1GM/ D5W 50ML 50 ML IV ONE (22:32)
[2019-12-02] VITALS (19 sets, daily range): BP systolic 81–132; BP diastolic 38–97
[2019-12-02] MEDS: INSULIN REGULAR, HUMAN 3ML VL 100 UNIT in SODIUM CHLORIDE 0.9% 100 ML 99 ML IV SCH ×2 (05:00)
[2019-12-02 05:22] LABS: ANION GAP 12.7 mmol/L (8-16); CALCIUM 8.2 mg/dL (8.4-10.2); CREATININE, SERUM 2.01 mg/dL (0.57-1.11)
[2019-12-02 05:26] LABS: POTASSIUM 2.7 mmol/L (3.5-5.1)
--- NOTE | 2019-12-02 06:29 | NUR ---
Call placed for Dr Harley Jeong to report critical lab values, awaiting return call
[2019-12-02] MEDS: LEVOTHYROXINE SODIUM 100 MCG/VIAL IV SCH (07:30)
[2019-12-02] MEDS: ASPIRIN 81 MG CHEW TAB PO SCH (08:27)
[2019-12-02] MEDS: DEXTROSE 5%/0.45% SOD CHL 1,000 ML IV SCH ×2 (08:27→16:29)
[2019-12-02] MEDS: CARVEDILOL 12.5 MG TAB PO SCH ×2 (08:27→17:17)
[2019-12-02] MEDS: GABAPENTIN 300 MG CAP PO SCH ×3 (08:27→20:59)
[2019-12-02] MEDS: ALLOPURINOL 100 MG TAB PO SCH (08:27)
[2019-12-02] MEDS: CLOPIDOGREL BISULFATE 75 MG TAB PO SCH (08:27)
[2019-12-02] MEDS: ISOSORBIDE MONONITRATE 20 MG TAB PO SCH ×3 (08:27→20:59)
[2019-12-02] MEDS ORDERED: POTASSIUM CHLORIDE 20 MEQ TAB CR PO ONE (09:15)
[2019-12-02] MEDS: CEFEPIME 1GM/NS 0.9% 50 ML 50 ML IV SCH ×2 (09:57→21:00)
[2019-12-02] MEDS: FUROSEMIDE 40 MG TAB PO SCH ×3 (12:17→20:59)
[2019-12-02] MEDS: POTASSIUM CHLORIDE 20 MEQ TAB CR PO SCH ×3 (12:17→16:29)
--- NOTE | 2019-12-02 12:35 | Consultation ---
DATE OF CONSULTATION: 12/02/2019 REASON FOR CONSULTATION: CHF. CHIEF COMPLAINT: Nausea and vomiting. HISTORY OF PRESENT ILLNESS: This is a 63-year-old female, well known to practice with history of CAD status post PCI to LAD 2015, CHF status post ICD placement, hypertension, hyperlipidemia, COPD, diabetes, peripheral artery disease, and chronic kidney disease. The patient presents to [facility] ER with complaints of nausea and vomiting for several days, was noted with a blood sugar of greater than 700 and DKA, is on insulin drip and IV fluids. Cardiology was consulted to evaluate the patient. The patient is seen in room, currently in no acute distress. Reports feeling much better. States for the past several days, was feeling nauseous, vomited several times. Went to see her PCP in which she was directed to go to the ER. Currently at this time, the patient denies any shortness of breath or any chest pain. On room air saturating 100%. HOME MEDICATIONS: Include aspirin 81 mg daily, Plavix 75 mg daily, Rosuvastatin 10 mg daily, carvedilol 12.5 mg twice a day, isosorbide dinitrate 10 mg 3 times a day, Lasix 40 mg daily, metolazone 5 mg daily as needed, nitroglycerin 0.4 sublingual as needed, levothyroxine 100 mcg daily, glimepiride 4 mg twice a day b.i.d., allopurinol 100 mg daily, gabapentin 300 mg t.i.d., albuterol inhaler, ProAir HFA 2 puffs as needed every 6 hours, and Protonix 40 mg daily. PAST MEDICAL HISTORY: Anterior STEMI 03/2016 with PCI to LAD, peripheral artery disease, CHF, status post ICD, hypertension, hyperlipidemia, chronic kidney disease baseline 1.6 to 1.7, COPD, hypothyroidism, and gout. PAST SURGICAL HISTORY: Hysterectomy 2015, laparoscopic cholecystectomy 2017, PCI LAD March 2016, and left SFA stenting August 2018. FAMILY HISTORY: Mother age 83, history of breast cancer. Father unknown history. SOCIAL HISTORY: She is . She is unemployed. She currently smokes and denies any alcohol use. ALLERGIES: NO KNOWN ALLERGIES. REVIEW OF SYSTEMS: GENERAL: Denies any weight changes. Positive for fatigue and weakness. No fevers or chills reported. SKIN: No rashes or sores. HEENT: Positive for nausea and vomiting. Denies any vision changes, blurred vision, double vision, epistaxis, sore throat, swollen neck, or stiff neck. CARDIAC: Denies any chest pains or palpitations. Positive for dyspnea on exertion. No orthopnea or PND. No lower extremity edema. RESPIRATORY: Positive for dyspnea on exertion. No hemoptysis reported. GI: Positive for nausea, vomiting, poor appetite recently. Denies any diarrhea, constipation, melena, tarry or bloody stools. URINARY: Positive for frequency and urgency. Denies any dysuria or hematuria. VASCULAR: Denies lower extremity edema. MUSCULOSKELETAL: Positive for muscle weakness. Positive for joint pain and back pain. NEUROLOGIC: Denies any tremors, weakness, paralysis, fainting, blackout, or seizures. HEMATOLOGY: Denies any anemia or bruising. ENDOCRINE: Denies any heat or cold intolerance, polyuria, or polydipsia. PHYSICAL EXAMINATION: VITAL SIGNS: Height 61 inches, 180 pounds, BMI 34. Temperature 97.9, pulse 63, respiratory rate 16, blood pressure 109/52, and pulse ox 99%. GENERAL: Appears stated age, reliable informant, in no acute distress. SKIN: No rashes or bruises noted. HEENT: Normocephalic. Pupils are equal, round, and reactive. Extraocular movements intact. Trachea midline. No JVD. No carotid bruits noted. HEART: Regular rate and rhythm. PMI about 5th intercostal space. There is an ICD scar in the left chest wall. LUNGS: Bilateral breath sounds clear to auscultation. No wheezing or rales noted. ABDOMEN: Soft, nontender, and nondistended. No organomegaly noted. MUSCULOSKELETAL: Good muscle strength throughout. No lower extremity swelling noted. VASCULAR: +2 radial pulses bilaterally, +1 DP/PT pulses bilaterally. NEUROLOGIC: Cranial nerves 2 through 12 seem intact. LABORATORY DATA: Currently, sodium 134, potassium 2.7, chloride 102, bicarb 22, BUN 29, creatinine 2.0, and glucose 353. TSH 2.3. Troponin 0.03. A1c 17.8. White count 15, hemoglobin 12, hematocrit 34, and platelets 363. Chest x-ray, no acute abnormalities noted. ASSESSMENT AND PLAN: 1. Diabetic ketoacidosis. 2. Mxpng-na-avphsed kidney disease. 3. Chronic systolic heart failure, compensated at this time. 4. Coronary artery disease, status post PCI LAD, 2016. 5. Chronic obstructive pulmonary disease. 6. Hypertension. 7. Hyperlipidemia. 8. Morbid obesity. PLAN: The patient presents to [facility] ER with nausea, vomiting, and weakness noted with a blood sugar greater than 700. A1c greater than 17, the patient being treated for DKA. DKA management as per Endocrine recommendations. Currently at this time, the patient seems compensated from a heart standpoint. No shortness of breath. No chest pain. Currently on room air with saturations 100%. Continue cardiac medications, aspirin, Plavix, Coreg, and isosorbide. Again watch volume status. We will need intermittent Lasix as needed. We will continue to monitor. Further recommendations as course progresses. Dictated by Bishnu Randle NP Elma Cary MD DC/KASSIDY /[id number]
--- NOTE | 2019-12-02 14:47 | NUR ---
Nutrition Screen Note RD Recommendation for Physician: - Continue 1800 ADA diet - Consider outpatient DM/CDE education consult upon discharge Plan of Care: RD following, monitoring for tolerance and adequacy - Diet education provided 12/01 Nutrition reason for involvement: Nutrition Risk Trigger Primary Diagnose(s): DKA, uncontrolled DM PMH: DM2, HLD, HTN, CAD, hypothyroidism Ht: 61 in Wt: 180.13 lb BMI: 34 kg/m2 IBW: [address] Assessment: (12/02/19) 63 YOF admitted for DKA, seen today per MST screen. 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 Pt denies wt loss, appear well nourished. Pt denies any N/V/C/D currently, states having N/V x 2-3 days BUILDING OPERATOR associated with DKA. Pt receptive to diet education at time of visit, handouts provided. All questions and concerns addressed at time of visit. BG remains elevated, accucheck of 432 at time of visit. Chart reviewed. Labs and meds reviewed. Pt discussed with RN on unit. Will continue to monitor. Current Diet: 1800 ADA Malnutrition Evaluation (12/02/19) The patient does not meet criteria for a specified degree of malnutrition at this time. Will re-evaluate at follow-up as appropriate. Diet Education Needs Assessment: Diet education indicated, pt receptive and education provided 12/01. Learner(s): pt Barriers: none Cultural/Language Modifications: none Readiness: ready Method: handouts, discussion Topics: DM2 nutrition therapy- CHO sources, CHO counting, meal planning, label reading Understanding/Compliance: fair Diet tolerance: tolerating Nutrition Care Level: low Signed: Florina Mo RD, LD, [facility]
[2019-12-02] MEDS: ATORVASTATIN 40 MG TAB PO SCH (20:59)
[2019-12-02] MEDS ORDERED: INSULIN GLARGINE 100 UNITS/ML VIAL SQ SCH (21:00)
--- NOTE | 2019-12-02 21:38 | NUR ---
Report given to Chelsea COLON, patient transferred to room 197 per w/c, all personal belongings transferred with patient
[2019-12-03] VITALS (7 sets, daily range): BP systolic 94–121; BP diastolic 47–67
--- NOTE | 2019-12-03 00:07 | NUR ---
blood sugar at this time is 362, continue 6 units /hr insulin drip.
[2019-12-03] MEDS: DEXTROSE 5%/0.45% SOD CHL 1,000 ML IV SCH ×4 (03:03→23:00)
[2019-12-03] MEDS ORDERED: SODIUM CHLORIDE 0.9% 100 ML ONE (03:08)
[2019-12-03] MEDS ORDERED: INSULIN REGULAR, HUMAN 100 UNIT/1 ML 3ML VIAL ONE (03:08)
[2019-12-03] MEDS: INSULIN REGULAR, HUMAN 3ML VL 100 UNIT in SODIUM CHLORIDE 0.9% 100 ML 99 ML IV SCH ×4 (05:05→19:20)
[2019-12-03 07:02] LABS: ANION GAP 15.1 mmol/L (8-16); CALCIUM 8.6 mg/dL (8.4-10.2); CREATININE, SERUM 1.99 mg/dL (0.57-1.11); POTASSIUM 3.1 mmol/L (3.5-5.1)
[2019-12-03] MEDS: LEVOTHYROXINE SODIUM 100 MCG/VIAL IV SCH (07:30)
--- NOTE | 2019-12-03 07:32 | NUR ---
elza CHAVES re labs. pt resting in bed
[2019-12-03] MEDS ORDERED: POTASSIUM CHLORIDE 20 MEQ TAB CR PO ONE ×2 (08:30→10:00)
--- NOTE | 2019-12-03 09:10 | NUR ---
ASSESSMENT: Spiritual concern Pt concerned for her who travels with his job. Intervention: Provided hospitality, empathic listening and prayer. Provided information on how to reach collections professional, if needed. Outcome: Pt expressed appreciation for visit. No need to follow at this time. ABHI MARTEL Rail Car Repairman Spiritual Care Department O: [phone]
[2019-12-03] MEDS: ASPIRIN 81 MG CHEW TAB PO SCH (09:23)
[2019-12-03] MEDS: GABAPENTIN 300 MG CAP PO SCH ×3 (09:24→21:00)
[2019-12-03] MEDS: CARVEDILOL 12.5 MG TAB PO SCH ×2 (09:24→16:00)
[2019-12-03] MEDS: ISOSORBIDE MONONITRATE 20 MG TAB PO SCH ×3 (09:24→21:00)
[2019-12-03] MEDS: FUROSEMIDE 40 MG TAB PO SCH ×3 (09:24→21:00)
[2019-12-03] MEDS: ALLOPURINOL 100 MG TAB PO SCH (09:25)
[2019-12-03] MEDS: CLOPIDOGREL BISULFATE 75 MG TAB PO SCH (09:25)
[2019-12-03] MEDS: CEFEPIME 1GM/NS 0.9% 50 ML 50 ML IV SCH ×2 (09:25→22:03)
--- NOTE | 2019-12-03 13:54 | NUR ---
DR PITO BYERS, PER MD CHANGED DRIP TO 8 UNITS. MAINTAIN UNTIL BS UNDER 200 THEN CAN START HIS STANDARD SCALE.
[2019-12-03] MEDS: ATORVASTATIN 40 MG TAB PO SCH (21:00)
[2019-12-03] MEDS ORDERED: INSULIN GLARGINE 100 UNITS/ML VIAL SQ SCH ×2 (21:00)
[2019-12-04] VITALS (8 sets, daily range): BP systolic 91–115; BP diastolic 48–73
[2019-12-04] MEDS: LEVOTHYROXINE SODIUM 100 MCG/VIAL IV SCH (07:30)
[2019-12-04] MEDS: CARVEDILOL 12.5 MG TAB PO SCH ×2 (08:07→16:52)
[2019-12-04] MEDS: ISOSORBIDE MONONITRATE 20 MG TAB PO SCH (08:07)
[2019-12-04] MEDS: INSULIN REGULAR, HUMAN 3ML VL 100 UNIT in SODIUM CHLORIDE 0.9% 100 ML 99 ML IV SCH ×6 (08:30→22:00)
[2019-12-04] MEDS: ASPIRIN 81 MG CHEW TAB PO SCH (08:58)
[2019-12-04] MEDS: DEXTROSE 5%/0.45% SOD CHL 1,000 ML IV SCH (08:58)
[2019-12-04] MEDS: GABAPENTIN 300 MG CAP PO SCH ×3 (08:58→20:38)
[2019-12-04] MEDS: FUROSEMIDE 40 MG TAB PO SCH (08:58)
[2019-12-04] MEDS: CLOPIDOGREL BISULFATE 75 MG TAB PO SCH (08:58)
[2019-12-04] MEDS: ALLOPURINOL 100 MG TAB PO SCH (08:58)
[2019-12-04] MEDS: CEFEPIME 1GM/NS 0.9% 50 ML 50 ML IV SCH ×2 (09:37→20:38)
[2019-12-04] MEDS ORDERED: POTASSIUM CHLORIDE 10MEQ EA PO NR (14:15)
[2019-12-04 15:30] LABS: BASOPHILS # (AUTO) 0.1 (0.0-0.1); BASOPHILS % 0.4 % (0.0-1.0); EOSINOPHILS # (AUTO) 0.5 (0.0-0.4); EOSINOPHILS % 3.3 % (0.0-6.0); HEMATOCRIT 32.6 % (34.2-44.1); HEMOGLOBIN 10.7 g/dL (12.0-16.0); LYMPHOCYTES # (AUTO) 4.3 (1.0-3.2); LYMPHOCYTES % 29.8 % (18.0-39.1); MEAN CORPUSCULAR HEMOGLOBIN 30.9 pg (28-32); MEAN CORPUSCULAR HGB CONC 32.8 g/dL (31-35); MEAN CORPUSCULAR VOLUME 94.2 fL (81-99); MONOCYTES # (AUTO) 0.7 (0.2-0.8); MONOCYTES % 4.8 % (4.4-11.3); NEUTROPHILS # (AUTO) 8.6 (2.1-6.9); NEUTROPHILS % 60.1 % (38.7-80.0); PLATELET COUNT 297 x10e3/uL (140-360); RED BLOOD COUNT 3.46 x10e6/uL (3.6-5.1); RED CELL DISTRIBUTION WIDTH 14.9 % (11.7-14.4)
--- NOTE | 2019-12-04 15:48 | Progress Note ---
DATE: Internal Medicine Progress Note SUBJECTIVE: The patient is doing better. PHYSICAL EXAMINATION: VITAL SIGNS: Blood pressure 104/64, temperature 38.4, heart rate 67 per minute, respiratory rate 19 per minute, and oxygen saturation 98%. HEART: Showed regular rhythm. Normal S1, S2 sound. LUNGS: Clear bilaterally. ABDOMEN: Soft. EXTREMITIES: Show no edema. LABORATORY DATA: [place] the blood [place], [place] [address], hemoglobin 12.0, hematocrit 34.5, platelet count 363,000. On the BMP, sodium 136, potassium 3.1, chloride 101, CO2 of 23. BUN 30, creatinine 1.99. GFR is 25, which makes her chronic renal failure stage 4. Also, she has calcium of 8.6, last blood sugar is 253. Serology, coronavirus test was not detected. IMPRESSION: 1. Diabetic ketoacidosis, which is resolved, [id number] renal failure stage 4. 2. Chronic systolic congestive heart failure. 3. Coronary artery disease, status post angioplasty. 4. Chronic obstructive pulmonary disease. 5. Hypertension. 6. Obesity. 7. Diabetic nephropathy. 8. Hypokalemia. 9. Leukocytosis. PLAN OF TREATMENT: Continue cefepime 1 g IV twice a day. Continue allopurinol 100 mg daily, aspirin 81 mg daily, Lipitor 80 mg daily, Coreg 12.5 mg twice a day, Plavix 75 mg daily, furosemide 40 mg twice a day, gabapentin 300 mg three times a day. Continue Lantus insulin 45 units at bedtime. Continue levothyroxine 100 mcg daily. Potassium has been given one time. We are going to recheck potassium today and BMP tomorrow and CBC today. Also, magnesium is 2.3. Continue current diabetic diet. Nacho Haynes MD LAS/MODL /[id number]
[2019-12-04] MEDS: INSULIN LISPRO 100 UNIT/1 ML 3ML VIAL SQ SCH ×3 (16:30→20:50)
[2019-12-04] MEDS: FUROSEMIDE 20 MG TAB PO SCH (16:45)
--- NOTE | 2019-12-04 17:41 | NUR ---
insulin drip decreased to 7 units/hr per MD order
--- NOTE | 2019-12-04 20:00 | NUR ---
DR SHELDON ORDERED FOR PT INSULIN DRIP TO BE DECREASED BY 1 UNIT EVERY 2 HOURS UNTIL DISCONTINUED, PT DRIP CHANGED TO 6UNITS/HR AT THIS TIME. WILL CONT TO MONITOR.
[2019-12-04] MEDS: INSULIN GLARGINE 100 UNITS/ML VIAL SQ SCH (20:38)
[2019-12-04] MEDS: ATORVASTATIN 40 MG TAB PO SCH (20:38)
[2019-12-05] VITALS (8 sets, daily range): BP systolic 92–114; BP diastolic 40–85
[2019-12-05] MEDS: INSULIN REGULAR, HUMAN 3ML VL 100 UNIT in SODIUM CHLORIDE 0.9% 100 ML 99 ML IV SCH ×6 (00:24→03:54)
[2019-12-05] MEDS ORDERED: ACETAMINOPHEN 325 MG TAB PO PRN (03:45)
--- NOTE | 2019-12-05 03:45 | NUR ---
PATIENT COMPLAINING OF BILATERAL UPPER ARM PAIN WITH RIGHT SIDE SLIGHTLY WORSE AND RED WITH BRUISING. PATIENT STATES STARTED WITHIN THE LAST HOUR, CALLED AND SPOKE WITH DR. STEINER WHO IS HOTEL OR MOTEL ROOM SERVICE SUPERVISOR FOR DR. COY AND EDUCATED THAT PT IS ON PLAVIX BUT NO COAGS IN CHART AND WAS ORDERED TO GIVE TYLENOL FOR PAIN AND STAT DOPPLER TO UPPER EXTREMITIES. WILL CONT TO MONITOR.
[2019-12-05 05:14] LABS: BASOPHILS # (AUTO) 0.1 (0.0-0.1); BASOPHILS % 0.4 % (0.0-1.0); EOSINOPHILS # (AUTO) 0.5 (0.0-0.4); EOSINOPHILS % 3.7 % (0.0-6.0); HEMATOCRIT 34.3 % (34.2-44.1); LYMPHOCYTES # (AUTO) 4.3 (1.0-3.2); LYMPHOCYTES % 32.1 % (18.0-39.1); MEAN CORPUSCULAR HEMOGLOBIN 31.1 pg (28-32); MEAN CORPUSCULAR HGB CONC 32.1 g/dL (31-35); MEAN CORPUSCULAR VOLUME 96.9 fL (81-99); MONOCYTES # (AUTO) 0.8 (0.2-0.8); NEUTROPHILS # (AUTO) 7.5 (2.1-6.9); NEUTROPHILS % 56.5 % (38.7-80.0); PLATELET COUNT 295 x10e3/uL (140-360); RED BLOOD COUNT 3.54 x10e6/uL (3.6-5.1); RED CELL DISTRIBUTION WIDTH 14.9 % (11.7-14.4)
[2019-12-05 05:50] LABS: CALCIUM 8.8 mg/dL (8.4-10.2); CREATININE, SERUM 1.81 mg/dL (0.57-1.11)
[2019-12-05] MEDS ORDERED: POTASSIUM CHLORIDE 20 MEQ TAB CR PO STA (05:58)
[2019-12-05] MEDS: INSULIN LISPRO 100 UNIT/1 ML 3ML VIAL SQ SCH ×7 (07:30→20:21)
[2019-12-05] MEDS: LEVOTHYROXINE SODIUM 100 MCG/VIAL IV SCH (07:30)
[2019-12-05] MEDS: ASPIRIN 81 MG CHEW TAB PO SCH (08:18)
[2019-12-05] MEDS: CLOPIDOGREL BISULFATE 75 MG TAB PO SCH (08:19)
[2019-12-05] MEDS: FUROSEMIDE 20 MG TAB PO SCH ×2 (08:19→16:00)
[2019-12-05] MEDS: GABAPENTIN 300 MG CAP PO SCH ×3 (08:19→20:15)
[2019-12-05] MEDS: ALLOPURINOL 100 MG TAB PO SCH (08:19)
[2019-12-05] MEDS: CARVEDILOL 12.5 MG TAB PO SCH ×2 (08:19→16:00)
[2019-12-05] MEDS ORDERED: POTASSIUM CHLORIDE 10MEQ EA PO NR (10:30)
[2019-12-05] MEDS: CEFEPIME 1GM/NS 0.9% 50 ML 50 ML IV SCH ×2 (11:55→20:21)
[2019-12-05 12:53] LABS: ANION GAP 16.5 mmol/L (8-16); CREATININE, SERUM 1.91 mg/dL (0.57-1.11); POTASSIUM 3.5 mmol/L (3.5-5.1)
--- NOTE | 2019-12-05 12:56 | Progress Note ---
DATE: Internal Medicine Progress Note SUBJECTIVE: The patient is doing better. PHYSICAL EXAMINATION: HEART: Showed regular rhythm. Normal S1 and S2 sound. LUNGS: Clear bilaterally. ABDOMEN: Soft. VITAL SIGNS: Blood pressure is 112/58, temperature 97.9, heart rate 70 per minute, respiratory rate 18 per minute, and O2 saturation 98%. LABORATORY DATA: On the blood work, we have a CBC; [place] [address], hemoglobin 11.0, hematocrit 34.3, and platelet count 295,000. On the BMP; sodium 130, potassium 3.0, chloride 101, CO2 24, BUN 29, creatinine 1.1, glucose 203, and calcium 9.8. FINAL IMPRESSION: 1. Diabetic ketoacidosis, which is resolving. 2. Mxclu-eo-byixqev renal failure, stage 4. 3. Chronic systolic congestive heart failure, compensated right now. 4. Coronary artery disease. 5. Chronic obstructive pulmonary disease. 6. Hypertension. 7. Obesity. 8. Diabetic nephropathy. PLAN OF TREATMENT: We are going to continue the current insulin regimen. Continue diabetic and renal diet. Continue cefepime 1 g IV twice a day. Continue with Tylenol 650 mg q.4 hours as needed for pain or fever, allopurinol 100 mg daily, aspirin 81 mg daily, and Lipitor 80 mg daily. Continue monitoring blood sugar before meals and at bedtime. Continue Coreg 12.5 mg twice a day, Plavix 75 mg daily, furosemide 40 mg twice a day, and gabapentin 300 mg 3 times a day. Continue with Lantus insulin 55 units at bedtime, Humalog 22 units before each meal, and levothyroxine 100 mcg daily. Potassium has been replaced. I am going to recheck potassium and magnesium levels. Nacho Haynes MD LAS/MODL /[id number]
--- NOTE | 2019-12-05 15:30 | NUR ---
informed Dr. Singh patients blood sugar elevated, orders entered
[2019-12-05] MEDS: ATORVASTATIN 40 MG TAB PO SCH (20:15)
[2019-12-05] MEDS: INSULIN GLARGINE 100 UNITS/ML VIAL SQ SCH (20:21)
--- NOTE | 2019-12-05 20:30 | NUR ---
DR SHELDON ORDERED THAT IF PT BLOOD GLUCOSE OVER 400 TO START INSULIN DRIP AGAIN PER PROTOCOL, PT BLOOD GLUCOSE UNDER THAT CHRISTY SO ADMINISTERED ALREADY ORDERED S/S INSULIN AND LANTUS. WILL CONTINUE TO CHECK BLOOD GLUCOSE Q4H TO MONITOR PT PROGRESS ON GLUCOSE.
[2019-12-06] VITALS (12 sets, daily range): BP systolic 101–132; BP diastolic 49–107
[2019-12-06 05:34] LABS: BASOPHILS # (AUTO) 0.1 (0.0-0.1); BASOPHILS % 0.4 % (0.0-1.0); EOSINOPHILS # (AUTO) 0.6 (0.0-0.4); EOSINOPHILS % 4.5 % (0.0-6.0); HEMATOCRIT 31.4 % (34.2-44.1); HEMOGLOBIN 9.9 g/dL (12.0-16.0); LYMPHOCYTES # (AUTO) 4.3 (1.0-3.2); LYMPHOCYTES % 32.5 % (18.0-39.1); MEAN CORPUSCULAR HEMOGLOBIN 30.3 pg (28-32); MEAN CORPUSCULAR HGB CONC 31.5 g/dL (31-35); MONOCYTES # (AUTO) 0.9 (0.2-0.8); NEUTROPHILS # (AUTO) 7.3 (2.1-6.9); NEUTROPHILS % 54.6 % (38.7-80.0); PLATELET COUNT 292 x10e3/uL (140-360); RED BLOOD COUNT 3.27 x10e6/uL (3.6-5.1); RED CELL DISTRIBUTION WIDTH 15.4 % (11.7-14.4)
[2019-12-06 05:48] LABS: ANION GAP 16.6 mmol/L (8-16); CREATININE, SERUM 1.76 mg/dL (0.57-1.11); POTASSIUM 3.6 mmol/L (3.5-5.1)
[2019-12-06] MEDS: LEVOTHYROXINE SODIUM 100 MCG/VIAL IV SCH (07:30)
[2019-12-06] MEDS: INSULIN LISPRO 100 UNIT/1 ML 3ML VIAL SQ SCH ×7 (07:30→20:27)
[2019-12-06] MEDS: ASPIRIN 81 MG CHEW TAB PO SCH (08:22)
[2019-12-06] MEDS: ALLOPURINOL 100 MG TAB PO SCH (08:23)
[2019-12-06] MEDS: CLOPIDOGREL BISULFATE 75 MG TAB PO SCH (08:23)
[2019-12-06] MEDS: GABAPENTIN 300 MG CAP PO SCH ×3 (08:23→20:26)
[2019-12-06] MEDS: FUROSEMIDE 20 MG TAB PO SCH ×2 (08:23→16:38)
[2019-12-06] MEDS: CARVEDILOL 12.5 MG TAB PO SCH ×2 (08:33→17:14)
[2019-12-06] MEDS ORDERED: LEVOTHYROXINE100 MCG PO (10:54)
[2019-12-06] MEDS: CEFEPIME 1GM/NS 0.9% 50 ML 50 ML IV SCH ×2 (10:55→22:00)
[2019-12-06] MEDS: LEVOTHYROXINE SODIUM 100 MCG TAB PO SCH (13:04)
--- NOTE | 2019-12-06 16:09 | NUR ---
Nutrition Screen Note RD Recommendation for Physician: - Continue 1800 ADA diet - Consider outpatient DM/CDE education consult upon discharge Plan of Care: RD following, monitoring for tolerance and adequacy - Diet education provided 12/01, 12/05 Nutrition reason for involvement: Diet education consult, follow up Primary Diagnose(s): DKA, uncontrolled DM PMH: DM2, HLD, HTN, CAD, hypothyroidism Ht: 61 in Wt: 180.13 lb BMI: 34 kg/m2 IBW: [address] Assessment: 12/05: Follow up and consult. Pt seen per MD consult for diet education. Spoke with RN who reports pt denies previous diet education and daughter concerned that pt has not been seen to address DM diet for discharge. Pt seen for f/u education with RN present at time of visit. Pt reports that she read handouts previously given, when asked to recall 3 sources of CHO pt unable to answer and stated that she "didn't get that far reading". Pt provided with additional handouts and re-educated on CHO sources, CHO serving sizes, meal planning, consistent intake, and foods to avoid. Pt consistently redirected conversation to discharge planning and expressed frustration that she could not go home yet. Pt with no questions or concerns regarding diet education and nutrition at time of visit. Recommendations for outpatient CDE consult discussed with RN after education completed. Will continue to monitor. (12/02/19) 63 YOF admitted for DKA, seen today per MST screen. 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 Pt denies wt loss, appear well nourished. 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 Pt receptive to diet education at time of visit, handouts provided. All questions and concerns addressed at time of visit. BG remains elevated, accucheck of 432 at time of visit. Chart reviewed. Labs and meds reviewed. Pt discussed with RN on unit. Will continue to monitor. Current Diet: 1800 ADA Malnutrition Evaluation (12/02/19) The patient does not meet criteria for a specified degree of malnutrition at this time. Will re-evaluate at follow-up as appropriate. Diet Education Needs Assessment: Diet education indicated, pt receptive and education provided 12/01 and 12/05. Learner(s): pt on 12/01; RN present for diet education at second visit on 12/05 Barriers: none Cultural/Language Modifications: none Readiness: ready on 12/01, resistant on 12/05 Method: handouts, discussion Topics: DM2 nutrition therapy- CHO sources, CHO counting, meal planning, label reading Understanding/Compliance: poor to fair, pt has yet to review diet education after initial visit and less receptive to diet education at second visit Diet tolerance: tolerating Nutrition Care Level: low Signed: Florina Mo RD, LD, CNSC
[2019-12-06] MEDS: ATORVASTATIN 40 MG TAB PO SCH (20:26)
--- NOTE | 2019-12-06 20:40 | NUR ---
Report given to Gabby for room 112. Patient updated on transferred. Patient called to notify of transfer.
--- NOTE | 2019-12-06 20:47 | NUR ---
RECEIVED PATIENT FROM [facility] VIA WHEELCHAIR. PATIENT AMBULATED TO BED, STEADY GAIT NOTED. TELE BOX 27 ON. NO PAIN REPORTED. NO S&S OF DISTRESS NOTED. LUNG SOUNDS CLEAR. BOWEL SOUNDS ACTIVE. PEDAL PULSES PALPABLE. L FA 22G ASYMPTOMATIC, INTACT, AND PATENT. BED LOCKED IN LOWEST POSITION, SIDE RAILS UPX2, CALL LIGHT IN REACH.
--- NOTE | 2019-12-06 20:51 | NUR ---
Patient transferred to room 112, Nurse Gabby notified that nurse in room. Patient A&Ox3 no issues or concerns noted. All belongings transferred with patient.
[2019-12-06] MEDS ORDERED: INSULIN GLARGINE 100 UNITS/ML VIAL SQ SCH (21:00)
[2019-12-06] MEDS ORDERED: SODIUM CHLORIDE 0.9% 250ML 250 ML ONE (21:51)
[2019-12-07] VITALS: BP 134/63
[2019-12-07 04:00] VITALS: BP 114/50
[2019-12-07] MEDS: LEVOTHYROXINE SODIUM 100 MCG TAB PO SCH (05:44)
[2019-12-07 06:26] LABS: ANION GAP 15.8 mmol/L (8-16); CALCIUM 9.4 mg/dL (8.4-10.2); CREATININE, SERUM 1.74 mg/dL (0.57-1.11); POTASSIUM 3.8 mmol/L (3.5-5.1)
--- NOTE | 2019-12-07 07:07 | NUR ---
BEDSIDE SHIFT REPORT RECEIVED FROM PM NURSE. PT AWAKE, ALERT, ORIENTED, NO COMPLAINTS AT THIS TIME. NO S/S OF DISTRESS; ALL SAFETY MEASURES IN PLACE. WILL CONTINUE TO MONITOR.
[2019-12-07 07:53] VITALS: BP 114/50
[2019-12-07 08:00] VITALS: BP 104/57
[2019-12-07] MEDS: INSULIN LISPRO 100 UNIT/1 ML 3ML VIAL SQ SCH ×4 (08:15→11:55)
[2019-12-07] MEDS: CARVEDILOL 12.5 MG TAB PO SCH (09:00)
[2019-12-07] MEDS: ASPIRIN 81 MG CHEW TAB PO SCH (10:36)
[2019-12-07] MEDS: CLOPIDOGREL BISULFATE 75 MG TAB PO SCH (10:36)
[2019-12-07] MEDS: FUROSEMIDE 20 MG TAB PO SCH (10:37)
[2019-12-07] MEDS: ALLOPURINOL 100 MG TAB PO SCH (10:38)
[2019-12-07] MEDS: GABAPENTIN 300 MG CAP PO SCH (10:38)
[2019-12-07 12:00] VITALS: BP 100/58
[2019-12-07] MEDS: CEFEPIME 1GM/NS 0.9% 50 ML 50 ML IV SCH ×2 (13:15→13:44)
== END 2019-12-07 15:30 | disposition home or self-care (01) | DRG 638 ==
LOC: ER 11:17 → ERHOLD 14:06 → ICU 20:00 → IMCU 12-02 21:25 → MED/SURG 12-06 20:51
DX: E11.10 Type 2 diabetes mellitus with ketoacidosis without coma (principal); I50.22 Chronic systolic (congestive) heart failure; N17.9 Acute kidney failure, unspecified; I13.0 Hypertensive heart and chronic kidney disease with heart failure and stage 1 through stage 4 chronic kidney disease, or unspecified chronic kidney disease; N18.4 Chronic kidney disease, stage 4 (severe); I25.10 Atherosclerotic heart disease of native coronary artery without angina pectoris; E03.9 Hypothyroidism, unspecified; E78.5 Hyperlipidemia, unspecified; Z90.49 Acquired absence of other specified parts of digestive tract; E87.6 Hypokalemia; E66.9 Obesity, unspecified; Z68.39 Body mass index [BMI] 39.0-39.9, adult; E11.22 Type 2 diabetes mellitus with diabetic chronic kidney disease; Z95.5 Presence of coronary angioplasty implant and graft; J44.9 Chronic obstructive pulmonary disease, unspecified; E11.21 Type 2 diabetes mellitus with diabetic nephropathy; Z79.82 Long term (current) use of aspirin; Z79.84 Long term (current) use of oral hypoglycemic drugs
CPT/HCPCS: 36415; 71045; 80048; 80053; 80061; 81001; 82550; 82553; 82948; 83036; 83735; 84439; 84443; 84484; 85025; 87040; 87086; 87635; 93005; 93970; 96360; 96372; 99284; J0692; J1815; J1817; J3480; J7030; J7050

== ENCOUNTER 2020-02-11 11:41 | Inpatient (IN) | payer MEDICARE, BC, OTHER ==
[~2020-02-11] VITALS: Ht 154.9 cm; Wt 89.8 kg
[~2020-02-11 11:41] MED LIST changes: +LEVOTHYROXINE100 MCG PO
[2020-02-11] MEDS ORDERED: SODIUM CHLORIDE 0.9% 1000ML 1,000 ML IV STA ×2 (11:47→12:49)
[2020-02-11] MEDS ORDERED: CEFEPIME HCL 2 GM VIAL IV ONE (12:00)
[2020-02-11 12:01] LABS: BASOPHILS # (AUTO) 0.1 (0.0-0.1); BASOPHILS % 0.3 % (0.0-1.0); EOSINOPHILS # (AUTO) 0.4 (0.0-0.4); EOSINOPHILS % 2.1 % (0.0-6.0); HEMATOCRIT 38.3 % (34.2-44.1); HEMOGLOBIN 12.2 g/dL (12.0-16.0); LYMPHOCYTES % 19.3 % (18.0-39.1); MEAN CORPUSCULAR HEMOGLOBIN 29.5 pg (28-32); MEAN CORPUSCULAR HGB CONC 31.9 g/dL (31-35); MEAN CORPUSCULAR VOLUME 92.7 fL (81-99); MONOCYTES # (AUTO) 0.9 (0.2-0.8); MONOCYTES % 4.4 % (4.4-11.3); NEUTROPHILS # (AUTO) 15.2 (2.1-6.9); PLATELET COUNT 477 x10e3/uL (140-360); RED BLOOD COUNT 4.13 x10e6/uL (3.6-5.1); RED CELL DISTRIBUTION WIDTH 15.1 % (11.7-14.4)
[2020-02-11 12:15] LABS: INR 0.94; PARTIAL THROMBOPLASTIN TIME 24.2 seconds (23.8-35.5)
[2020-02-11 12:24] LABS: ALBUMIN 3.4 g/dL (3.5-5.0); ALBUMIN/GLOBULIN RATIO 0.6 (0.8-2.0); ANION GAP 21.8 mmol/L (8-16); CALCIUM 10.6 mg/dL (8.4-10.2); CREATININE, SERUM 2.99 mg/dL (0.57-1.11)
[2020-02-11 12:28] LABS: POTASSIUM 2.8 mmol/L (3.5-5.1)
--- NOTE | 2020-02-11 12:30 | Diagnostic Imaging Report ---
EXAMINATION: CHEST SINGLE (PORTABLE) INDICATION: Sepsis COMPARISON: Chest radiograph 11/30/2019 FINDINGS: LINES/TUBES:Left chest AICD. LUNGS:The lungs are well inflated. No focal consolidation or pulmonary edema. PLEURA:No pleural effusion or pneumothorax. MEDIASTINUM:The cardiomediastinal silhouette appears unchanged in size and shape. BONES/SOFT TISSUES:No acute osseous injury. ABDOMEN:No free air under the diaphragm. IMPRESSION: No focal pneumonia or pulmonary edema. Signed by: Damaso Lopez MD on 02/11/2020 12:27 PM
[2020-02-11 12:32] LABS: CREATINE KINASE MB 0.7 ng/mL (0-5.0)
[2020-02-11] MEDS ORDERED: CEFEPIME 2 GM/NS 0.9% 100 ML 100 ML IV ONE (12:45)
[2020-02-11] MEDS ORDERED: POTASSIUM CHLORIDE 20 MEQ TAB CR PO STA (12:50)
--- NOTE | 2020-02-11 12:50 | Emergency Department Note ---
History of Present Illnes History of Present Illness Chief Complaint: General Medicine Complaints History of Present Illness This is a 64 year old female hx CAD fell 3 days ago hurting her right hip, went to [facility] and her workup was negative. Pt went to Dr Coy for f/u. Her BP was low 79 systolic so she was sent here. She mainly c/o pain, feeling weak, no f/c no chill no cough no abd pain no n/v no dysuria . Historian: Patient Arrival Mode: Car Additional Treatment FILM HISTORIAN: SENT FROM DR COY'S OFFICE Flight Communications Specialist Required: No Onset (how long ago): day(s) Radiation: Reports extremity Severity: moderate Onset quality: sudden Duration (how long): day(s) Chronicity: new Relieving factors: none Exacerbating factors: none Associated symptoms: Reports denies other symptoms, Reports loss of appetite, Reports malaise, Reports weakness Treatments prior to arrival: none Past Medical/Family History Physician Review I have reviewed the patient's past medical and family history. Any updates have been documented here. Past Medical History Recent Fever: No Clinical Suspicion of Infectio: No New/Unexplained Change in Ment: No Past Medical History: Hypertension, Diabetes, CHF, Hypothyroidism, Hyperlipedemia Past Surgical History: Cholecysctectomy, Appendectomy, Pacer/AICD Other Surgery: UTERINE TUMOR REMOVAL CARDIAC STENT PLACEMENT Social History Smoking Cessation: Never Smoker Counseling Performed: No Alcohol Use: None Any Illegal Drug Use: No Other Last Tetanus: utd Any Pre-Existing Lines (PICC,: No Review of Systems Review of Systems Constitutional: Reports malaise, Reports weakness EENTM: Reports no symptoms Cardiovascular: Reports no symptoms Respiratory: Reports no symptoms Gastrointestinal: Reports no symptoms Genitourinary: Reports no symptoms Musculoskeletal: Reports as per HPI, Reports joint pain, Reports muscle pain Integumentary: Reports no symptoms Neurological: Reports no symptoms Psychological: Reports no symptoms Endocrine: Reports no symptoms Hematological/Lymphatic: Reports no symptoms Physical Exam Related Data Allergies: Coded Allergies: No Known Allergies (Unverified , 11/27/18) Triage Vital Signs Vital Signs Date Time Temp Pulse Resp B/P (MAP) Pulse Ox O2 Delivery O2 Flow Rate FiO2 02/11/20 11:45 98.1 87 16 71/50 98 Room Air 02/11/20 11:55 2.0 Vital signs reviewed: Yes (BP is low on arrival 82/45) Physical Exam CONSTITUTIONAL Constitutional: Present well-developed, Present obese, Present distressed, Present ill appearing HENT HENT: Present normocephalic, Present atraumatic, Present mucosae dry, Present nose normal HENT L/R: Present left ext ear normal, Present right ext ear normal EYES Eyes: Reports PERRL, Reports conjunctivae normal NECK Neck: Present ROM normal PULMONARY Pulmonary: Present effort normal, Present breath sounds normal CARDIOVASCULAR Cardiovascular: Present regular rhythm, Present heart sounds normal, Present capillary refill normal, Present normal rate GASTROINTESTINAL Abdominal: Present soft, Present nontender, Present bowel sounds normal (obese) GENITOURINARY Genitourinary: Present exam deferred SKIN Skin: Present warm, Present dry, Present pale MUSCULOSKELETAL Musculoskeletal: Present ROM normal NEUROLOGICAL Neurological: Present alert, Present oriented x 3, Present no gross motor or sensory deficits PSYCHOLOGICAL Psychological: Present mood/affect normal, Present judgement normal Results Laboratory Result Diagram: 02/11/20 1145 02/11/20 1145 Laboratory Laboratory Tests Test 02/11/20 11:45 White Blood Count 20.78 x10e3/uL (4.8-10.8) Red Blood Count 4.13 x10e6/uL (3.6-5.1) Hemoglobin 12.2 g/dL (12.0-16.0) Hematocrit 38.3 % (34.2-44.1) Mean Corpuscular Volume 92.7 fL (81-99) Mean Corpuscular Hemoglobin 29.5 pg (28-32) Mean Corpuscular Hemoglobin Concent 31.9 g/dL (31-35) Red Cell Distribution Width 15.1 % (11.7-14.4) Platelet Count 477 x10e3/uL (140-360) Neutrophils (%) (Auto) 73.0 % (38.7-80.0) Lymphocytes (%) (Auto) 19.3 % (18.0-39.1) Monocytes (%) (Auto) 4.4 % (4.4-11.3) Eosinophils (%) (Auto) 2.1 % (0.0-6.0) Basophils (%) (Auto) 0.3 % (0.0-1.0) Neutrophils # (Auto) 15.2 (2.1-6.9) Lymphocytes # (Auto) 4.0 (1.0-3.2) Monocytes # (Auto) 0.9 (0.2-0.8) Eosinophils # (Auto) 0.4 (0.0-0.4) Basophils # (Auto) 0.1 (0.0-0.1) Absolute Immature Granulocyte (auto 0.18 x10e3/uL (0-0.1) Prothrombin Time 13.0 seconds (11.9-14.5) Prothromb Time International Ratio 0.94 Activated Partial Thromboplast Time 24.2 seconds (23.8-35.5) Sodium Level 141 mmol/L (136-145) Potassium Level 2.8 mmol/L (3.5-5.1) Chloride Level 91 mmol/L (98-107) Carbon Dioxide Level 31 mmol/L (22-29) Anion Gap 21.8 mmol/L (8-16) Blood Urea Nitrogen 64 mg/dL (7-26) Creatinine 2.99 mg/dL (0.57-1.11) Estimat Glomerular Filtration Rate 16 ML/MIN (60-) BUN/Creatinine Ratio 21 (6-25) Glucose Level 199 mg/dL (74-118) Calcium Level 10.6 mg/dL (8.4-10.2) Total Bilirubin 0.5 mg/dL (0.2-1.2) Aspartate Amino Transf (AST/SGOT) 14 IU/L (5-34) Alanine Aminotransferase (ALT/SGPT) 13 IU/L (0-55) Alkaline Phosphatase 163 IU/L (40-150) Creatine Kinase 57 IU/L (29-168) Creatine Kinase MB 0.70 ng/mL (0-5.0) Troponin I 0.026 ng/mL (0-0.300) Total Protein 8.7 g/dL (6.5-8.1) Albumin 3.4 g/dL (3.5-5.0) Globulin 5.3 g/dL (2.3-3.5) Albumin/Globulin Ratio 0.6 (0.8-2.0) Lab results reviewed: Yes Laboratory comments hypokalemia, WBC 20.78 Imaging Imaging results reviewed: Yes Impressions no acute Procedures 12 Lead ECG Interpretation ECG Interpretation : ECG: ECG 1 Flight Communications Specialist: Interpreted by ED physician Date: Feb 11, 2020 Time: 11:43 Prior ECG tracings: reviewed Rhythm: sinus rhythm Rate: normal QRS axis: left ST segments normal: Yes T waves normal: Yes Q waves: aVR, V1 Clinical Impression: abnormal ECG Critical Care Time Total Critical Care Time (min): 45 Time ED Physician saw patient: 14:50 Critcal care necessary due to: dehydration, metabolic failure, sepsis, shock, other (Crititical care for likely septic shock complicated by CHF, tx with IV fluid, IV Cefepime, initial assessemt and mulitple reassessment, d/c with Dr Charlene Cary, Dr Coy) Critcal care time spent by me: develop tx plan w patient/surrogate, discussion w consultants, discussion w primary provider, evaluation patient response to tx, examination of patient, obtaining hx from patient/surrogate, order/perform tx or interventions, order/review laboratory studies, order/review radiographic studies, pulse oximetry, re-evaluation of patient condition Assessment & Plan Medical Decision Making MDM sepsis vs dehydration Reassessment Reassessment volume reassessment done, BP is better. Pt has hx CHF and her blood pressure. Patient declines the 3rd litter of IV fluid as part of 30 cc per kg for sepsis shock per protocol Assessment & Plan Final Impression: (1) Septic shock (2) Hypokalemia (3) CHF (congestive heart failure) (4) Renal failure (ARF), acute on chronic Depart Disposition: ADMITTED Last Vital Signs Date Time Temp Pulse Resp B/P (MAP) Pulse Ox O2 Delivery O2 Flow Rate FiO2 02/11/20 11:55 84 16 83/64 98 Nasal Cannula 2.0 02/11/20 11:45 98.1 Home Meds Reported Medications Levothyroxine Sodium (LEVOTHYROXINE SODIUM) 100 Mcg Tablet, 100 MCG PO DAILY@0600 12/06/19 Furosemide (FUROSEMIDE) 40 Mg Tablet, 40 MG PO TID, #30 TAB 11/27/18 Gabapentin (GABAPENTIN) 300 Mg Capsule, 300 MG PO TID, #60 CAP 11/27/18 Isosorbide Mononitrate (ISOSORBIDE MONONITRATE) 20 Mg Tablet, 10 MG PO TID, #30 TAB 11/27/18 Aspirin (ASPIRIN) 81 Mg Tab.chew, 81 MG PO DAILY 11/27/18 Allopurinol (ALLOPURINOL) 100 Mg Tablet, 100 MG PO DAILY, #30 TAB 11/27/18 Clopidogrel Bisulfate (CLOPIDOGREL) 75 Mg Tablet, 75 MG PO DAILY, #30 TAB 11/27/18 Carvedilol (CARVEDILOL) 12.5 Mg Tablet, 12.5 MG PO BID, #60 TAB 11/27/18 Sulfamethoxazole/Trimethoprim (SULFAMETHOXAZOLE-TMP DS TABLET) 1 Each Tablet, 1 TAB PO BID 11/27/18 Acetaminophen With Codeine (TYLENOL WITH CODEINE #3 TABLET) 1 Each Tablet, 300 MG PO Q6H, TAB 11/27/18 Atorvastatin Calcium (ATORVASTATIN CALCIUM) 20 Mg Tablet, 80 MG PO HS, #30 TAB 11/27/18 Glimepiride (GLIMEPIRIDE) 2 Mg Tablet, 4 MG PO DAILY, TAB 11/27/18 Medications in the ED Cefepime HCl 2 gm ONCE ONCE IV ; Start 02/11/20 at 12:00; Stop 02/11/20 at 12:01; Status UNV Sodium Chloride 1,000 ml @ 0 mls/hr Q0M STAT IV Last administered on 02/11/20at 11:45; Admin Dose 999 MLS/HR; Start 02/11/20 at 11:47; Stop 02/11/20 at 11:50; Status DC Cefepime HCl 100 ml @ 100 mls/hr ONCE ONCE IV ; Start 02/11/20 at 12:45; Stop 02/11/20 at 13:44 Physician Attestation Provider Attestation case discussed with Dr Harley Coy, Dr Cary in person LLUVIA RM MD Feb 11, 2020 12:50
[2020-02-11 14:47] LABS: CLARITY,URINE CLEAR (CLEAR); COLOR,URINE YELLOW (YELLOW)
[2020-02-11 14:48] LABS: BILIRUBIN,URINE NEGATIVE (NEGATIVE); KETONES,URINE NEGATIVE (NEGATIVE); LEUKOCYTE ESTERASE ,URINE NEGATIVE (NEGATIVE); NITRITE,URINE NEGATIVE (NEGATIVE); PROTEIN,URINE DIPSTICK TRACE (NEGATIVE); URINE UROBILINOGEN 0.2 mg/dL (0.2 - 1)
[2020-02-11 15:11] LABS: BACTERIA,URINE RARE /HPF; EPITHELIAL CELLS,URINE FEW /LPF; RBC,URINE 0-5 /HPF (0-5)
[2020-02-11] MEDS ORDERED: ACETAMINOPHEN 325 MG TAB PO PRN (15:15)
[2020-02-11] MEDS ORDERED: ONDANSETRON HCL INJ 2MG/ML 2ML 2 MG/ML VIAL IV PRN (15:15)
[2020-02-11] MEDS ORDERED: SODIUM CHLORIDE 0.9% 1000ML 1,000 ML IV SCH (15:15)
[2020-02-11] MEDS ORDERED: DIPHENHYDRAMINE HCL INJ 50 MG/ML VIAL IV PRN (15:15)
[2020-02-11] MEDS ORDERED: CEFEPIME HCL 2 GM VIAL IV SCH (15:15)
--- NOTE | 2020-02-11 16:42 | NUR ---
report attempted unable to get in contact with receiving RN
[2020-02-11] MEDS: CARVEDILOL 3.125 MG TAB PO SCH (17:00)
[2020-02-11 17:24] VITALS: BP 90/54
[2020-02-11 17:25] VITALS: BP 90/54
[2020-02-11] MEDS ORDERED: LANTUS 3ML100 UNITS/ SQ (17:47)
[2020-02-11] MEDS ORDERED: HUMALOG100 UNIT/3 SQ (17:47)
[2020-02-11] MEDS: FAMOTIDINE 20 MG/2 ML VIAL IV SCH (17:49)
[2020-02-11] MEDS: FUROSEMIDE 40 MG TAB PO SCH (17:49)
--- NOTE | 2020-02-11 19:10 | NUR ---
Patient visited in room during nursing rounds. Patient alert and oriented x3. Ambulatory with 1 person assist. Pt is unsteady on ambulation at this time. SBP on 80s or 90s at this time. Will monitor pt closely. Call forte within reach.
[2020-02-11 19:36] VITALS: BP 94/49
[2020-02-11 20:11] LABS: CREATINE KINASE MB 0.7 ng/mL (0-5.0)
[2020-02-11 21:00] VITALS: BP 94/49
[2020-02-11] MEDS ORDERED: DEXTROSE 50% SYRINGE 50 ML IV PRN (21:15)
[2020-02-11] MEDS: CRESTOR 10MG PO SCH (21:30)
[2020-02-11] MEDS: INSULIN LISPRO 100 UNIT/1 ML 3ML VIAL SQ SCH (21:40)
[2020-02-11] MEDS: INSULIN GLARGINE 100 UNITS/ML VIAL SQ SCH (21:40)
--- NOTE | 2020-02-11 22:06 | Consultation ---
DATE OF CONSULTATION: 02/11/2020 Cardiac Consultation REASON FOR CONSULTATION: Hypotension and worsening renal function. HISTORY OF PRESENT ILLNESS: This is a delightful 64-year-old lady who is very well known to me. The patient is known with coronary artery disease who had major myocardial infarction in 2016 with severe advanced left ventricular dysfunction, congestive heart failure, status post ICD placement, hypertension, hyperlipidemia, diabetes mellitus, peripheral arterial vascular disease, COPD, chronic renal insufficiency. The patient couple of days ago she fell and she injured her left thigh and her left hip. She went to the emergency room, but she did not want to wait because it was very long list. During that stay, she had CT scan, which showed no acute changes. X-ray showed no fractured left hip. She went home and she is still in pain and she is feeling weak and dizzy. She went today to be seen by Dr. Jeong in his office. Her blood pressure systolic was in the 70s. She was sent to the emergency room. The patient's problem is weakness and inability to do much and left hip pain. There is no orthopnea. There is no paroxysmal nocturnal dyspnea despite her advanced congestive heart failure. The patient's blood pressure upon arrival to emergency room was in the 70s. She got 2 L of normal saline and currently her blood pressure in the 90s and she is feeling a little bit better. However, she started having a little bit of shortness of breath. Regarding her cardiac issue, the patient really truly had multiple admission with acute on chronic systolic heart failure despite being on appropriate therapy. And this really catch 22 because of the patient's advanced renal insufficiency and very difficult to adjust her diuretics as well as she was not on SHENA inhibitor. However, this time the patient seems to be very compensated and probably she is a little bit on the dry side and she is hypovolemic. HOME MEDICATIONS: Include aspirin 81 mg a day, Plavix 75 mg a day, Crestor 10 mg a day. Isosorbide 10 mg t.i.d., Coreg 12.5 mg twice a day, Zaroxolyn 5 mg as needed. Lasix 40 mg twice a day, levothyroxine 100 mcg a day. Glimepiride 4 mg a day. Allopurinol 100 mg a day, gabapentin 300 mg t.i.d., ProAir and albuterol inhaler. Protonix 40 mg a day. ALLERGIES: NONE. PAST MEDICAL HISTORY: 1. Anterior myocardial infarction massive in March 2016 with PCI to the LAD, but severe left ventricular dysfunction with congestive heart failure, ICD placement. 2. Hypertension. 3. Hyperlipidemia. 4. Chronic renal disease. 5. Diabetes mellitus, severe end organ damage. 6. COPD with smoking history. 7. Hypothyroidism. 8. Gout. 9. Peripheral arterial vascular disease, remote history of right SFA revascularization and known to have severe PVD, but the patient treated medically because of her renal insufficiency and her advanced heart disease. 10. Hysterectomy. 11. Status post lap cholecystectomy. 12. Status post right external iliac stent and the left SFA stent 100% for SIDEROGRAPHER of this SFA. The patient also known to have bilateral arterial insufficiency documented by Doppler. SOCIAL HISTORY: She is . She is not alcohol drinker. Unfortunate, she is smoker. FAMILY HISTORY: Mother at the age 83 of breast cancer. Father unknown medical history. One brother and two sisters, diabetes mellitus, coronary artery disease, and peripheral arterial vascular disease in the family. REVIEW OF SYSTEMS: GENERAL: No fever, no chills. Only fatigue and weakness. SKIN: No rashes. HEENT: Decreased vision, blurry vision at time. CARDIAC: As per history and physical. PULMONARY: As per history and physical. GI: Occasional nausea. No diarrhea. No constipation. No melena. : Urgency and frequency. No hematuria. MUSCULOSKELETAL: Severe left hip pain since her fall. NEUROLOGICAL: No localized weakness, but the patient does have tingling of both lower extremities. ENDOCRINE: Usually, her blood sugar not very well controlled. PHYSICAL EXAMINATION: VITAL SIGNS: Height of 5 feet 1 inch, weight of 180 pounds. Blood pressure on arrival to the emergency room in the 70s, now in the 90s. Heart rate of 70. HEENT: Pupils are reactive. NECK: No elevation of jugular venous pulsation. CHEST: ICD noted in place. Few coarse crackles. HEART: PMI 5th left intercostal space. Normal first, second heart sound. Gallop is present. ABDOMEN: Soft with good bowel sounds. EXTREMITIES: No cyanosis, no clubbing, small bruises noted, decreased feet pulses. NEUROLOGIC: Able to move her extremities. LABORATORY DATA: White blood cell count of 20.8, hemoglobin of 12.2, hematocrit of 38%, platelet count of 477,000. BUN of 64, creatinine of 2.3, sodium 141, potassium 2.8. IMPRESSION AND PLAN: 1. Status post fall. 2. Leukocytosis. 3. Worsening renal function. 4. The patient is with congestive heart failure, but currently she is hypovolemic. 5. Coronary artery disease. 6. Severe left ventricular dysfunction. 7. ICD. 8. Worsening renal function. 9. Hyperlipidemia. 10. Diabetes mellitus. Cardiac edwards, I will agree with hydration given, however, the patient already had 2 L, I am going to stop IV. We are going to resume her medication on lower doses. Workup for her leukocytosis is warranted most likely for urine infection and maybe urosepsis. The patient will be followed with you during her stay. We will check her repeat lab. We will check her culture. We will observe her volume status carefully. Pending on her course, further steps to be done. I would like to thank you for your kind referral. MD SANTO Roque/ISIL /[id number]
[2020-02-12] VITALS (8 sets, daily range): BP systolic 91–116; BP diastolic 48–67
[2020-02-12] MEDS: CEFEPIME 2 GM/NS 0.9% 100 ML 100 ML IV SCH ×2 (01:00→12:29)
[2020-02-12] MEDS ORDERED: SODIUM CHLORIDE 0.9% 250ML 250 ML ONE (01:07)
[2020-02-12] MEDS: FUROSEMIDE 40 MG TAB PO SCH ×2 (05:55→17:41)
[2020-02-12] MEDS: LEVOTHYROXINE SODIUM 100 MCG TAB PO SCH (06:00)
[2020-02-12 06:01] LABS: BASOPHILS % 0.2 % (0.0-1.0); EOSINOPHILS # (AUTO) 0.5 (0.0-0.4); EOSINOPHILS % 2.9 % (0.0-6.0); HEMATOCRIT 33.5 % (34.2-44.1); HEMOGLOBIN 10.6 g/dL (12.0-16.0); LYMPHOCYTES # (AUTO) 3.8 (1.0-3.2); LYMPHOCYTES % 23.4 % (18.0-39.1); MEAN CORPUSCULAR HEMOGLOBIN 30.3 pg (28-32); MEAN CORPUSCULAR HGB CONC 31.6 g/dL (31-35); MEAN CORPUSCULAR VOLUME 95.7 fL (81-99); MONOCYTES # (AUTO) 0.9 (0.2-0.8); MONOCYTES % 5.3 % (4.4-11.3); NEUTROPHILS % 67.6 % (38.7-80.0); PLATELET COUNT 380 x10e3/uL (140-360); RED CELL DISTRIBUTION WIDTH 15.1 % (11.7-14.4)
[2020-02-12 06:35] LABS: ALBUMIN 2.7 g/dL (3.5-5.0); ALBUMIN/GLOBULIN RATIO 0.6 (0.8-2.0); ANION GAP 14.8 mmol/L (8-16); CALCIUM 9.2 mg/dL (8.4-10.2); CHOL/HDL RATIO 5.2 (3.0-3.6); CREATININE, SERUM 2.35 mg/dL (0.57-1.11)
[2020-02-12 06:37] LABS: THYROID STIMULATING HORMONE 0.352 uIU/mL (0.350-4.940)
[2020-02-12 06:51] LABS: POTASSIUM 2.8 mmol/L (3.5-5.1)
--- NOTE | 2020-02-12 07:00 | NUR ---
RECEIVED PATIENT RESTING IN BED NO S/S OF DISTRESS. BED LOW, WHEELS LOCKED, SIDE RAILS X2. CALL LIGHT IN REACH WILL CONTINUE TO MONITOR PATIENT.
[2020-02-12] MEDS: INSULIN LISPRO 100 UNIT/1 ML 3ML VIAL SQ SCH ×7 (07:30→21:05)
[2020-02-12 07:41] LABS: CREATINE KINASE MB 0.6 ng/mL (0-5.0)
[2020-02-12] MEDS: CARVEDILOL 3.125 MG TAB PO SCH ×2 (07:58→16:28)
[2020-02-12] MEDS: FAMOTIDINE 20 MG/2 ML VIAL IV SCH ×2 (08:11→16:28)
[2020-02-12] MEDS: CLOPIDOGREL BISULFATE 75 MG TAB PO SCH (08:11)
[2020-02-12] MEDS ORDERED: POTASSIUM CHLORIDE 20 MEQ TAB CR PO NR ×2 (09:30→12:00)
[2020-02-12] MEDS: CRESTOR 10MG PO SCH (21:05)
[2020-02-12] MEDS: INSULIN GLARGINE 100 UNITS/ML VIAL SQ SCH (21:05)
--- NOTE | 2020-02-12 21:05 | NUR ---
PATIENT IN STABLE CONDITION, NO SIGNS OF DISTRESS NOTED. PATIENT IS RESTING COMFORTABLY AND VOICES NO PAIN AT THIS TIME. HEAD OF BED IS ELEVATED AND NIGHT MEDICATIONS WERE GIVEN. BED IS IN LOWEST POSITION, BOTH SIDE RAILS ARE UP, CALL LIGHT WITHIN EASY REACH, WILL CONTINUE TO MONITOR.
[2020-02-13] VITALS (8 sets, daily range): BP systolic 92–111; BP diastolic 54–73
[2020-02-13] MEDS: CEFEPIME 2 GM/NS 0.9% 100 ML 100 ML IV SCH ×2 (01:49→12:22)
[2020-02-13 06:13] LABS: CALCIUM 9.8 mg/dL (8.4-10.2); CREATININE, SERUM 2.31 mg/dL (0.57-1.11)
[2020-02-13] MEDS: FUROSEMIDE 40 MG TAB PO SCH ×2 (06:29→16:05)
[2020-02-13] MEDS: LEVOTHYROXINE SODIUM 100 MCG TAB PO SCH (06:29)
[2020-02-13] MEDS: INSULIN LISPRO 100 UNIT/1 ML 3ML VIAL SQ SCH ×7 (07:30→20:02)
[2020-02-13] MEDS: FAMOTIDINE 20 MG/2 ML VIAL IV SCH ×2 (08:27→16:06)
[2020-02-13] MEDS: CARVEDILOL 3.125 MG TAB PO SCH ×2 (08:27→16:06)
[2020-02-13] MEDS: CLOPIDOGREL BISULFATE 75 MG TAB PO SCH (08:28)
[2020-02-13] MEDS ORDERED: POTASSIUM CHLORIDE 20 MEQ TAB CR PO ONE (08:45)
--- NOTE | 2020-02-13 19:12 | NUR ---
Report given to oncoming nurse of patient's status. Resting in bed . AAOX3 to time, person, place, situation. Respirations even and unlabored. Side rails upx2, call light within reach.
[2020-02-13] MEDS: INSULIN GLARGINE 100 UNITS/ML VIAL SQ SCH (21:05)
[2020-02-13] MEDS: CRESTOR 10MG PO SCH (21:07)
--- NOTE | 2020-02-13 21:19 | NUR ---
PATIENT COMPLAINED OF FEELING VERY HOT IN ROOM, COULD NOT FEEL ANY AIR COMING FROM VENTS. PATIENT WAS SUCCESSFULLY TRANSFERRED TO ROOM 210, AND VOICED PLEASANCE AFTER BEING MOVED AND ROOM FELT COOL.
[2020-02-14] VITALS: BP 111/61
[2020-02-14] MEDS: CEFEPIME 2 GM/NS 0.9% 100 ML 100 ML IV SCH (01:05)
[2020-02-14] MEDS ORDERED: SODIUM CHLORIDE 0.9% 250ML 250 ML ONE (01:05)
[2020-02-14 04:00] VITALS: BP 114/68
[2020-02-14 06:13] LABS: ANION GAP 16.3 mmol/L (8-16); CREATININE, SERUM 2.45 mg/dL (0.57-1.11); POTASSIUM 3.3 mmol/L (3.5-5.1)
[2020-02-14] MEDS: LEVOTHYROXINE SODIUM 100 MCG TAB PO SCH (06:15)
[2020-02-14] MEDS: FUROSEMIDE 40 MG TAB PO SCH (06:15)
[2020-02-14 07:42] VITALS: BP 109/58
[2020-02-14 07:50] VITALS: BP 104/58
[2020-02-14] MEDS: FAMOTIDINE 20 MG/2 ML VIAL IV SCH (08:31)
[2020-02-14] MEDS: CARVEDILOL 3.125 MG TAB PO SCH (08:32)
[2020-02-14] MEDS: CLOPIDOGREL BISULFATE 75 MG TAB PO SCH (08:32)
[2020-02-14] MEDS: INSULIN LISPRO 100 UNIT/1 ML 3ML VIAL SQ SCH ×2 (08:32)
--- NOTE | 2020-02-14 10:46 | NUR ---
IMM letter delivered and explained to pt. She verbalized understanding and states she's ready to go home. Copy given to pt. Signed copy placed in chart.
--- NOTE | 2020-02-14 11:18 | NUR ---
Left AC IV discontinued. No signs of infiltration noted. 2x2 gauze and coban placed. Taken via wheelchair to personal car by PCT. AAOx4 to time, person, place, situation. Respirations even and unlabored. Denies pain. Discharge instructions and all personal belongings taken with patient. No rx available.
[2020-02-14] MEDS ORDERED: POTASSIUM CHLORIDE 20 MEQ TAB CR PO ONE (11:20)
[2020-02-14] MEDS ORDERED: ONDANSETRON HCL 4 MG ORAL DISINTEGRATING TAB PO PRN (11:30)
== END 2020-02-14 11:18 | disposition home or self-care (01) | DRG 683 ==
LOC: ER 11:55 → ERHOLD 15:01 → MED/SURG2 17:11 → OBSVTOIN 02-12 09:31 → MED/SURG2 02-13 21:25
DX: N17.9 Acute kidney failure, unspecified (principal); I13.0 Hypertensive heart and chronic kidney disease with heart failure and stage 1 through stage 4 chronic kidney disease, or unspecified chronic kidney disease; I50.22 Chronic systolic (congestive) heart failure; E87.6 Hypokalemia; E11.22 Type 2 diabetes mellitus with diabetic chronic kidney disease; N18.3 Chronic kidney disease, stage 3 (moderate); Z79.4 Long term (current) use of insulin; J44.9 Chronic obstructive pulmonary disease, unspecified; I25.2 Old myocardial infarction; Z09 Encounter for follow-up examination after completed treatment for conditions other than malignant neoplasm; Z87.891 Personal history of nicotine dependence; M10.9 Gout, unspecified; E11.51 Type 2 diabetes mellitus with diabetic peripheral angiopathy without gangrene; E78.5 Hyperlipidemia, unspecified; I25.10 Atherosclerotic heart disease of native coronary artery without angina pectoris; Z95.5 Presence of coronary angioplasty implant and graft; W19.XXXA Unspecified fall, initial encounter; E86.1 Hypovolemia; E66.01 Morbid (severe) obesity due to excess calories; Z68.37 Body mass index [BMI] 37.0-37.9, adult
CPT/HCPCS: 36415; 71045; 80048; 80053; 80061; 81001; 82550; 82553; 82948; 83036; 83605; 84443; 84484; 85025; 85610; 85730; 86850; 86900; 87040; 87086; 93005; 99284; G0378; J1815; J2405; J7030; J7050; U0002

== ENCOUNTER 2020-11-08 22:38 | Emergency (ER) | payer MEDICARE, BC ==
[~2020-11-08] VITALS: Ht 154.9 cm; Wt 89.8 kg
[~2020-11-08 22:38] MED LIST changes: +HUMALOG100 UNIT/3 SQ; +LANTUS 3ML100 UNITS/ SQ
[2020-11-08 23:06] LABS: BASOPHILS # (AUTO) 0.1 (0.0-0.1); BASOPHILS % 0.4 % (0.0-1.0); EOSINOPHILS # (AUTO) 0.3 (0.0-0.4); EOSINOPHILS % 2.2 % (0.0-6.0); HEMATOCRIT 26.8 % (34.2-44.1); HEMOGLOBIN 8.8 g/dL (12.0-16.0); LYMPHOCYTES # (AUTO) 4.6 (1.0-3.2); LYMPHOCYTES % 30.3 % (18.0-39.1); MEAN CORPUSCULAR HEMOGLOBIN 30.3 pg (28-32); MEAN CORPUSCULAR HGB CONC 32.8 g/dL (31-35); MEAN CORPUSCULAR VOLUME 92.4 fL (81-99); MONOCYTES # (AUTO) 0.7 (0.2-0.8); MONOCYTES % 4.5 % (4.4-11.3); NEUTROPHILS # (AUTO) 9.2 (2.1-6.9); NEUTROPHILS % 60.6 % (38.7-80.0); PLATELET COUNT 317 x10e3/uL (140-360)
[2020-11-08] MEDS ORDERED: SODIUM CHLORIDE 0.9% 1000ML 1,000 ML IV ONE (23:15)
[2020-11-08] MEDS ORDERED: ACETAMINOPHEN 325 MG TAB PO ONE (23:15)
[2020-11-08 23:23] LABS: ALBUMIN 2.9 g/dL (3.5-5.0); ALBUMIN/GLOBULIN RATIO 0.7 (0.8-2.0); ANION GAP 15.4 mmol/L (8-16); CALCIUM 8.6 mg/dL (8.4-10.2); CREATININE, SERUM 2.88 mg/dL (0.57-1.11); POTASSIUM 3.4 mmol/L (3.5-5.1)
[2020-11-08] MEDS ORDERED: SODIUM CHLORIDE 0.9% 1000ML 1,000 ML ONE (23:26)
[2020-11-09 00:49] LABS: CLARITY,URINE SL CLOUDY (CLEAR); COLOR,URINE YELLOW (YELLOW); KETONES,URINE NEGATIVE (NEGATIVE); LEUKOCYTE ESTERASE ,URINE NEGATIVE (NEGATIVE); NITRITE,URINE NEGATIVE (NEGATIVE); PROTEIN,URINE DIPSTICK 2+ (NEGATIVE); URINE UROBILINOGEN 0.2 mg/dL (0.2 - 1)
[2020-11-09 00:53] LABS: BACTERIA,URINE FEW /HPF; EPITHELIAL CELLS,URINE MANY /LPF; WBC,URINE (MAN) 0-5 /HPF (0-5)
[2020-11-09 00:54] LABS: AMORPHOUS SEDIMENT,URINE FEW (FEW)
[2020-11-09] MEDS ORDERED: INSULIN REGULAR, HUMAN 100 UNIT/1 ML 3ML VIAL SQ ONE (01:15)
[2020-11-09 03:08] VITALS: BP 119/71
== END 2020-11-09 02:40 | disposition home or self-care (01) ==
LOC: ER 23:07
DX: I12.9 Hypertensive chronic kidney disease with stage 1 through stage 4 chronic kidney disease, or unspecified chronic kidney disease (principal); E11.22 Type 2 diabetes mellitus with diabetic chronic kidney disease; N18.9 Chronic kidney disease, unspecified; R94.31 Abnormal electrocardiogram [ECG] [EKG]; I50.9 Heart failure, unspecified; E78.5 Hyperlipidemia, unspecified; Z95.810 Presence of automatic (implantable) cardiac defibrillator; Z95.5 Presence of coronary angioplasty implant and graft
CPT/HCPCS: 36415; 81001; 82948; 93005; 99284

== ENCOUNTER 2021-02-19 10:10 | Inpatient (IN) | payer BC, MEDICARE ==
[~2021-02-19] VITALS: Ht 154.9 cm; Wt 87.7 kg
[2021-02-19] MEDS ORDERED: Vancomycin IV 1 GM in SODIUM CHLORIDE 0.9% 250ML 250 ML IV ONE (11:00)
[2021-02-19] MEDS ORDERED: INSULIN REGULAR, HUMAN 100 UNIT/1 ML SQ ONE (11:00)
[2021-02-19 11:13] LABS: BASOPHILS # (AUTO) 0.1 (0.0-0.1); BASOPHILS % 0.4 % (0.0-1.0); EOSINOPHILS # (AUTO) 0.5 (0.0-0.4); EOSINOPHILS % 3.9 % (0.0-6.0); HEMATOCRIT 29.9 % (34.2-44.1); HEMOGLOBIN 9.1 g/dL (12.0-16.0); LYMPHOCYTES # (AUTO) 3.5 (1.0-3.2); LYMPHOCYTES % 28.1 % (18.0-39.1); MEAN CORPUSCULAR HEMOGLOBIN 28.5 pg (28-32); MEAN CORPUSCULAR HGB CONC 30.4 g/dL (31-35); MEAN CORPUSCULAR VOLUME 93.7 fL (81-99); MONOCYTES # (AUTO) 0.7 (0.2-0.8); MONOCYTES % 5.2 % (4.4-11.3); NEUTROPHILS # (AUTO) 7.7 (2.1-6.9); NEUTROPHILS % 61.1 % (38.7-80.0); PLATELET COUNT 434 x10e3/uL (140-360); RED BLOOD COUNT 3.19 x10e6/uL (3.6-5.1); RED CELL DISTRIBUTION WIDTH 18.7 % (11.7-14.4)
[2021-02-19 11:44] LABS: ALBUMIN 2.9 g/dL (3.5-5.0); ALBUMIN/GLOBULIN RATIO 0.7 (0.8-2.0); ANION GAP 12.1 mmol/L (8-16); CALCIUM 9.3 mg/dL (8.4-10.2); CREATININE, SERUM 2.9 mg/dL (0.57-1.11); POTASSIUM 4.1 mmol/L (3.5-5.1)
[2021-02-19] MEDS ORDERED: ASPIRIN 81 MG CHEW TAB PO ONE (12:15)
[2021-02-19 13:59] VITALS: BP 113/61
[2021-02-19] MEDS ORDERED: DEXTROSE 50% SYRINGE 50 ML IV PRN (14:45)
[2021-02-19] MEDS: GABAPENTIN 300 MG CAP PO SCH ×2 (15:00→21:36)
[2021-02-19] MEDS: ISOSORBIDE MONONITRATE 20 MG TAB PO SCH ×2 (15:00→21:00)
[2021-02-19 15:43] VITALS: BP 121/52
[2021-02-19 15:57] VITALS: BP 121/52
[2021-02-19 16:01] VITALS: BP 100/56
[2021-02-19] MEDS: INSULIN REGULAR, HUMAN 100 UNIT/1 ML SQ SCH ×2 (16:30→21:00)
[2021-02-19] MEDS: INSULIN LISPRO 100 UNIT/1 ML 3ML VIAL SQ SCH (16:30)
[2021-02-19] MEDS: CARVEDILOL 12.5 MG TAB PO SCH (16:38)
[2021-02-19] MEDS ORDERED: INSULIN LISPRO SQ SCH (17:00)
[2021-02-19 20:00] VITALS: BP 101/48
[2021-02-19] MEDS ORDERED: INSULIN GLARGINE 100 UNITS/ML VIAL SQ SCH (21:00)
[2021-02-19] MEDS ORDERED: INSULIN GLARGINE SQ SCH (21:00)
[2021-02-20] VITALS (8 sets, daily range): BP systolic 96–120; BP diastolic 54–66
[2021-02-20] MEDS: LEVOTHYROXINE SODIUM 100 MCG TAB PO SCH (05:02)
[2021-02-20 05:23] LABS: BASOPHILS % 0.3 % (0.0-1.0); EOSINOPHILS # (AUTO) 0.4 (0.0-0.4); EOSINOPHILS % 3.5 % (0.0-6.0); HEMATOCRIT 26.5 % (34.2-44.1); HEMOGLOBIN 8.1 g/dL (12.0-16.0); LYMPHOCYTES # (AUTO) 4.4 (1.0-3.2); LYMPHOCYTES % 34.9 % (18.0-39.1); MEAN CORPUSCULAR HEMOGLOBIN 28.5 pg (28-32); MEAN CORPUSCULAR HGB CONC 30.6 g/dL (31-35); MEAN CORPUSCULAR VOLUME 93.3 fL (81-99); MONOCYTES # (AUTO) 0.7 (0.2-0.8); MONOCYTES % 5.4 % (4.4-11.3); NEUTROPHILS # (AUTO) 6.9 (2.1-6.9); NEUTROPHILS % 54.6 % (38.7-80.0); PLATELET COUNT 404 x10e3/uL (140-360); RED BLOOD COUNT 2.84 x10e6/uL (3.6-5.1); RED CELL DISTRIBUTION WIDTH 18.9 % (11.7-14.4)
[2021-02-20 06:12] LABS: INR 0.97; PROTHROMBIN TIME 13.1 seconds (11.9-14.5)
[2021-02-20 06:27] LABS: ALBUMIN 2.6 g/dL (3.5-5.0); ALBUMIN/GLOBULIN RATIO 0.7 (0.8-2.0); ANION GAP 13.7 mmol/L (8-16); CALCIUM 9.3 mg/dL (8.4-10.2); CREATININE, SERUM 2.82 mg/dL (0.57-1.11); MAGNESIUM 2.2 MG/DL (1.3-2.1); POTASSIUM 3.7 mmol/L (3.5-5.1)
[2021-02-20 06:49] LABS: EOSINOPHILS % (MANUAL) 2 % (0-7); LYMPHOCYTES % (MANUAL) 26 % (19-48); MONOCYTES % (MANUAL) 3 % (3.4-9.0); NEUTROPHILS % (MANUAL) 68 % (40-74); NUCLEATED RED BLOOD CELLS 1
[2021-02-20 06:51] LABS: PLATELET ESTIMATE ADEQUATE; PLATELET MORPHOLOGY COMMENT FEW LARGE; RBC MORPHOLOGY COMMENT NORMAL; TOXIC GRANULATION SLIGHT
[2021-02-20] MEDS: INSULIN REGULAR, HUMAN 100 UNIT/1 ML SQ SCH ×4 (07:30→21:55)
[2021-02-20] MEDS: CARVEDILOL 12.5 MG TAB PO SCH ×2 (09:00→17:00)
[2021-02-20] MEDS: ISOSORBIDE MONONITRATE 20 MG TAB PO SCH ×3 (09:00→21:00)
[2021-02-20] MEDS: ASPIRIN 81 MG CHEW TAB PO SCH (09:05)
[2021-02-20] MEDS: GABAPENTIN 300 MG CAP PO SCH ×3 (09:07→22:44)
[2021-02-20] MEDS: INSULIN LISPRO 100 UNIT/1 ML 3ML VIAL SQ SCH ×3 (11:30→16:30)
[2021-02-20] MEDS ORDERED: Vancomycin IV 1 GM in SODIUM CHLORIDE 0.9% 250ML 250 ML IV ONE (14:30)
[2021-02-20] MEDS ORDERED: SODIUM CHLORIDE 0.9% 50ML 50 ML ONE (15:12)
[2021-02-20] MEDS: INSULIN GLARGINE 100 UNITS/ML VIAL SQ SCH ×2 (16:15→21:55)
[2021-02-20] MEDS: FUROSEMIDE 40 MG TAB PO SCH (22:44)
[2021-02-20] MEDS: ATORVASTATIN 40 MG TAB PO SCH (22:44)
[2021-02-21] VITALS (11 sets, daily range): BP systolic 107–118; BP diastolic 53–65
[2021-02-21 05:04] LABS: BASOPHILS % 0.3 % (0.0-1.0); EOSINOPHILS # (AUTO) 0.5 (0.0-0.4); EOSINOPHILS % 4.5 % (0.0-6.0); HEMATOCRIT 26.4 % (34.2-44.1); HEMOGLOBIN 8.1 g/dL (12.0-16.0); LYMPHOCYTES # (AUTO) 4.2 (1.0-3.2); LYMPHOCYTES % 35.2 % (18.0-39.1); MEAN CORPUSCULAR HEMOGLOBIN 28.7 pg (28-32); MEAN CORPUSCULAR HGB CONC 30.7 g/dL (31-35); MEAN CORPUSCULAR VOLUME 93.6 fL (81-99); MONOCYTES # (AUTO) 0.8 (0.2-0.8); MONOCYTES % 6.6 % (4.4-11.3); NEUTROPHILS # (AUTO) 6.2 (2.1-6.9); NEUTROPHILS % 51.6 % (38.7-80.0); PLATELET COUNT 408 x10e3/uL (140-360); RED BLOOD COUNT 2.82 x10e6/uL (3.6-5.1)
[2021-02-21 05:21] LABS: ALBUMIN 2.6 g/dL (3.5-5.0); ALBUMIN/GLOBULIN RATIO 0.7 (0.8-2.0); ANION GAP 12.7 mmol/L (8-16); CREATININE, SERUM 2.5 mg/dL (0.57-1.11); POTASSIUM 3.7 mmol/L (3.5-5.1)
[2021-02-21] MEDS: LEVOTHYROXINE SODIUM 100 MCG TAB PO SCH (06:21)
[2021-02-21 06:45] LABS: EOSINOPHILS % (MANUAL) 1 % (0-7); LYMPHOCYTES % (MANUAL) 28 % (19-48); METAMYELOCYTES % (MANUAL) 1 % (0-0); MONOCYTES % (MANUAL) 3 % (3.4-9.0); MYELOCYTES % (MANUAL) 2 % (0-0); NEUTROPHILS % (MANUAL) 63 % (40-74)
[2021-02-21 06:46] LABS: ANISOCYTOSIS SLIGHT; HYPOCHROMASIA SLIGHT; PLATELET ESTIMATE ADEQUATE; POLYCHROMASIA FEW; RBC MORPHOLOGY COMMENT NORMAL
[2021-02-21] MEDS: ASPIRIN 81 MG CHEW TAB PO SCH (08:52)
[2021-02-21] MEDS: CARVEDILOL 12.5 MG TAB PO SCH ×2 (08:53→17:12)
[2021-02-21] MEDS: ALLOPURINOL 100 MG TAB PO SCH (08:53)
[2021-02-21] MEDS: FUROSEMIDE 40 MG TAB PO SCH ×3 (08:53→21:39)
[2021-02-21] MEDS: GABAPENTIN 300 MG CAP PO SCH ×3 (08:53→21:39)
[2021-02-21] MEDS: CLOPIDOGREL BISULFATE 75 MG TAB PO SCH (08:53)
[2021-02-21] MEDS: ISOSORBIDE MONONITRATE 20 MG TAB PO SCH ×3 (08:54→21:30)
[2021-02-21] MEDS: INSULIN GLARGINE 100 UNITS/ML VIAL SQ SCH ×2 (10:22→21:41)
[2021-02-21] MEDS: INSULIN REGULAR, HUMAN 100 UNIT/1 ML SQ SCH ×4 (10:22→21:41)
[2021-02-21] MEDS: INSULIN LISPRO 100 UNIT/1 ML 3ML VIAL SQ SCH ×3 (10:22→16:02)
[2021-02-21] MEDS ORDERED: Vancomycin IV 1 GM in SODIUM CHLORIDE 0.9% 250ML 250 ML IV SCH (12:15)
[2021-02-21] MEDS: Vancomycin IV 1 GM in SODIUM CHLORIDE 0.9% 250ML 250 ML IV SCH (13:18)
[2021-02-21] MEDS: ATORVASTATIN 40 MG TAB PO SCH (21:39)
[2021-02-22] VITALS (9 sets, daily range): BP systolic 95–104; BP diastolic 48–71
[2021-02-22] MEDS: LEVOTHYROXINE SODIUM 100 MCG TAB PO SCH (06:02)
[2021-02-22] MEDS: ASPIRIN 81 MG CHEW TAB PO SCH (08:15)
[2021-02-22] MEDS: CARVEDILOL 12.5 MG TAB PO SCH ×2 (08:16→16:46)
[2021-02-22] MEDS: GABAPENTIN 300 MG CAP PO SCH ×2 (08:17→14:49)
[2021-02-22] MEDS: CLOPIDOGREL BISULFATE 75 MG TAB PO SCH (08:17)
[2021-02-22] MEDS: ISOSORBIDE MONONITRATE 20 MG TAB PO SCH ×2 (08:17→13:46)
[2021-02-22] MEDS: FUROSEMIDE 40 MG TAB PO SCH ×2 (08:17→14:49)
[2021-02-22] MEDS: ALLOPURINOL 100 MG TAB PO SCH (08:17)
[2021-02-22] MEDS: Vancomycin IV 1 GM in SODIUM CHLORIDE 0.9% 250ML 250 ML IV SCH (09:38)
[2021-02-22] MEDS: INSULIN LISPRO 100 UNIT/1 ML 3ML VIAL SQ SCH ×3 (09:42→16:46)
[2021-02-22] MEDS: INSULIN GLARGINE 100 UNITS/ML VIAL SQ SCH (09:43)
[2021-02-22] MEDS: INSULIN REGULAR, HUMAN 100 UNIT/1 ML SQ SCH ×3 (09:43→15:38)
== END 2021-02-22 19:41 | disposition home or self-care (01) | DRG 602 ==
LOC: ER 10:17 → ERHOLD 12:24 → MED/SURG2 13:42
DX: L02.211 Cutaneous abscess of abdominal wall (principal); I21.A1 Myocardial infarction type 2; I13.0 Hypertensive heart and chronic kidney disease with heart failure and stage 1 through stage 4 chronic kidney disease, or unspecified chronic kidney disease; N18.4 Chronic kidney disease, stage 4 (severe); I50.22 Chronic systolic (congestive) heart failure; N17.9 Acute kidney failure, unspecified; E11.65 Type 2 diabetes mellitus with hyperglycemia; E11.42 Type 2 diabetes mellitus with diabetic polyneuropathy; Z79.899 Other long term (current) drug therapy; E11.22 Type 2 diabetes mellitus with diabetic chronic kidney disease; E78.00 Pure hypercholesterolemia, unspecified; E11.51 Type 2 diabetes mellitus with diabetic peripheral angiopathy without gangrene; F17.200 Nicotine dependence, unspecified, uncomplicated; I25.2 Old myocardial infarction; J44.9 Chronic obstructive pulmonary disease, unspecified; I25.10 Atherosclerotic heart disease of native coronary artery without angina pectoris; Z98.61 Coronary angioplasty status; E66.9 Obesity, unspecified; Z68.36 Body mass index [BMI] 36.0-36.9, adult; Z20.822 Contact with and (suspected) exposure to COVID-19
CPT/HCPCS: 36415; 71045; 80053; 80202; 82010; 82948; 83735; 83880; 84484; 85025; 85610; 87040; 93005; 93306; 99251; 99284; J1815; J1817; J3370; J7050; U0002

== ENCOUNTER → 2021-12-05 | Outpatient (CLI) | payer MEDICARE | LOC: RAD 13:37 | PROVIDERS: ATTEND Internal Medicine | DX: M54.2 Cervicalgia (principal); M25.511 Pain in right shoulder | CPT/HCPCS: 72050 ==

== ENCOUNTER 2023-08-20 12:10 | Emergency (ER) | payer MEDICARE ==
[~2023-08-20] VITALS: Ht 152.4 cm; Wt 80.7 kg
[2023-08-20] MEDS ORDERED: HYDROCODONE/APAP 10MG-325MG TAB PO STA (13:17)
[2023-08-20] MEDS ORDERED: CEPHALEXIN500 MG PO (13:27)
[2023-08-20] MEDS ORDERED: BACTRIM DS TAB1 EACH PO (13:27)
[2023-08-20] MEDS ORDERED: LIDOCAINE HCL 1% LOCAL INJ 20 ML VIAL INJ STA (13:34)
[2023-08-20] MEDS ORDERED: ACETAMINOPHEN-1 EAC4 PO (13:44)
[2023-08-20 14:00] VITALS: BP 144/84; PULSE 98; RESP 18; TEMP 98.2; O2SAT 100
== END 2023-08-20 14:18 | disposition home or self-care (01) ==
LOC: ER 13:00
DX: N61.1 Abscess of the breast and nipple (principal); I10 Essential (primary) hypertension; E11.9 Type 2 diabetes mellitus without complications; I50.9 Heart failure, unspecified; E78.5 Hyperlipidemia, unspecified; E03.9 Hypothyroidism, unspecified; Z95.810 Presence of automatic (implantable) cardiac defibrillator; Z95.5 Presence of coronary angioplasty implant and graft
CPT/HCPCS: 99283

== ENCOUNTER 2024-01-16 08:00 | Outpatient (RCR) | payer MEDICARE ==
[~2024-01-16 08:00] MED LIST changes: +ACETAMINOPHEN-1 EAC4 PO; +BACTRIM DS TAB1 EACH PO; +CEPHALEXIN500 MG PO; +JARDIANCE10 MG PO; +MUPIROCIN 2% OINT 22 GM TUBE ONE; +PROVENTIL HFA6.7 GM INH; +XARELTO10 MG PO
[2024-01-16] MEDS ORDERED: MUPIROCIN 2% OINT 22 GM TUBE ONE (12:50)
== END 2024-01-16 12:27 | disposition home or self-care (01) ==
LOC: WCC 08:00
PROVIDERS: ATTEND Nurse Practitioner Family
DX: S31.502A Unspecified open wound of unspecified external genital organs, female, initial encounter (principal); S21.002A Unspecified open wound of left breast, initial encounter
CPT/HCPCS: 36415; 82948

== ENCOUNTER 2024-02-06 12:12 | Outpatient (RCR) | payer MEDICARE ==
[~2024-02-06 12:12] MED LIST changes: -MUPIROCIN 2% OINT 22 GM TUBE ONE
[2024-02-06] MEDS ORDERED: LIDOCAINE VISC 2% SOLN 15 ML UDC ONE ×2 (13:53→14:07)
[2024-02-06] MEDS ORDERED: MUPIROCIN 2% OINT 22 GM TUBE ONE ×2 (13:53→14:07)
[2024-02-06 17:39] LABS: BASOPHILS % 0.3 % (0.0-1.0); EOSINOPHILS # (AUTO) 0.4 (0.0-0.4); EOSINOPHILS % 3.1 % (0.0-6.0); HEMATOCRIT 39.1 % (34.2-44.1); HEMOGLOBIN 12.5 g/dL (12.0-16.0); LYMPHOCYTES # (AUTO) 3.7 (1.0-3.2); LYMPHOCYTES % 27.8 % (18.0-39.1); MEAN CORPUSCULAR HEMOGLOBIN 32.7 pg (28-32); MEAN CORPUSCULAR VOLUME 102.4 fL (81-99); MONOCYTES # (AUTO) 0.6 (0.2-0.8); MONOCYTES % 4.5 % (4.4-11.3); NEUTROPHILS # (AUTO) 8.6 (2.1-6.9); NEUTROPHILS % 63.9 % (38.7-80.0); PLATELET COUNT 275 x10e3/uL (140-360); RED BLOOD COUNT 3.82 x10e6/uL (3.6-5.1); RED CELL DISTRIBUTION WIDTH 15.7 % (11.7-14.4); WHITE BLOOD COUNT 13.43 x10e3/uL (4.8-10.8)
[2024-02-06 17:50] LABS: ALBUMIN/GLOBULIN RATIO 0.8 (0.8-2.0); BILIRUBIN,TOTAL 0.6 mg/dL (0.2-1.2); CALCIUM 9.6 mg/dL (8.4-10.2); CREATININE, SERUM 1.78 mg/dL (0.57-1.11); TOTAL PROTEIN 6.6 g/dL (6.5-8.1)
== END 2024-02-18 ==
LOC: WCC 12:12
PROVIDERS: ATTEND Nurse Practitioner Family
DX: S21.002A Unspecified open wound of left breast, initial encounter (principal); S21.001A Unspecified open wound of right breast, initial encounter
CPT/HCPCS: 36415; 80053; 83036; 84134; 85025

== ENCOUNTER 2024-03-31 05:00 | Outpatient (RCR) | payer MEDICARE | END 2024-04-19 23:59 | disposition home or self-care (01) | LOC: WCC 05:00 | PROVIDERS: ATTEND Nurse Practitioner Family | DX: S21.002A Unspecified open wound of left breast, initial encounter (principal) ==

== ENCOUNTER → 2024-05-20 | Outpatient (RCR) | payer MEDICARE | LOC: WCC 08:00 | PROVIDERS: ATTEND Nurse Practitioner Family | DX: E11.40 Type 2 diabetes mellitus with diabetic neuropathy, unspecified (principal); L73.2 Hidradenitis suppurativa; F15.10 Other stimulant abuse, uncomplicated; E78.5 Hyperlipidemia, unspecified; I10 Essential (primary) hypertension ==